=== PATIENT | female | born 1950 | race Caucasian/White ===

== ENCOUNTER → 2019-07-19 09:05 | Outpatient (CLI) | payer OTHER, SELFPAY ==
--- NOTE | 2019-07-19 | DI.MRI.S_ITS ---
PROCEDURE: MR HEAD/BRAIN WO/W CON INDICATIONS: Diplopia TECHNIQUE: Noncontrast axial T1 spin echo, axial T2 fast spin echo, sagittal and axial FLAIR, coronal T2 fast spin echo, axial gradient echo, axial diffusion and ADC through the brain. After the administration of contrast, axial and coronal T1 spin echo with fat saturation through the brain. COMPARISON: None. FINDINGS: Image quality: Diagnostic CSF spaces: Basal cisterns are patent. No extra-axial fluid collections. Ventricles are normal in size and shape. Brain: No midline shift. No intracranial bleeds or masses. No abnormal intracranial enhancement. There is cerebral volume loss for age. There is periventricular white matter chronic small vessel ischemic change. The brainstem appears normal. Diffusion-weighted images demonstrate no acute ischemic insults. No chronic ischemic insults. Normal intravascular flow voids are present. Skull and face: Calvarial marrow is normal in signal. Orbits appear normal. Sinuses: Sinuses and mastoids appear clear. There is mild to moderate rightward nasal septal deviation incidentally noted. IMPRESSION: No imaging explanation is found for this patient's presenting symptoms. No orbital abnormality is seen to the limits of this study. No masses or abnormal enhancement can be seen. No findings of acute or subacute infarction can be seen. Dictated by: Xander Steel M.D. on 07/19/2019 at 10:15 Approved by: Xander Steel M.D. on 07/19/2019 at 10:16
== END ==
PROVIDERS: PCP Family Medicine; Visit Provider Family Medicine
DX: H53.2 Diplopia (principal); H57.13 Ocular pain, bilateral; J34.2 Deviated nasal septum
CPT/HCPCS: 70553

== ENCOUNTER → 2021-02-17 13:00 | Outpatient (CLI) | payer MEDICARE, SELFPAY ==
[2021-02-17 20:33] LABS: COVID19 - ORCAS (NP or Nasal) Negative (Negative)
== END ==
PROVIDERS: PCP Family Medicine; Visit Provider Family Medicine
DX: Z20.822 Contact with and (suspected) exposure to COVID-19 (principal)
CPT/HCPCS: C9803; U0003

== ENCOUNTER → 2022-06-23 09:37 | Outpatient (CLI) | payer MEDICARE, SELFPAY ==
[2022-06-23 20:05] LABS: Add Manual Diff / Slide Review NO; Basophils Absolute Auto 100 /uL (0-100); Basophils Percent Auto 0.8 % (0-2); Eosinophils Absolute Auto 0 /uL (0-450); Eosinophils Percent Auto 0.1 % (2-4); Hematocrit 41.3 % (36-46); Hemoglobin 13.9 g/dL (12.0-16.0); Lymphocytes Absolute Auto 1500 /uL (1100-4500); Mean Corpuscular HGB Conc 33.7 % (30-36); Mean Corpuscular Hemoglobin 30.3 PG (26-34); Monocytes Absolute Auto 500 /uL (0-900); Monocytes Percent Auto 7.6 % (3-14); Neutrophils Absolute Auto 4900 /uL (1500-7000); Neutrophils Percent Auto 70.5 % (50-75); Platelet Count 157 X10^3/uL (150-400); Red Blood Cell Count 4.58 X10^6/uL (4.0-5.2); Red Cell Distribution Width 12.9 % (11.6-14.8)
[2022-06-23 20:10] LABS: BUN Creatinine Ratio 28.4 (6-22); Blood Urea Nitrogen 19 mg/dL (7-17); Calcium 9.3 mg/dL (8.4-10.2); Carbon Dioxide 29 mmol/L (22-32); Chloride 103 mmol/L (98-107); Cholesterol 220 mg/dL (140-199); Estimated Glomerular Filt Rate > 60 mL/min (>60); Glucose 99 mg/dL (80-110); HDL Cholesterol 61 mg/dL (40-60); HEMOLYSIS < 15 (0-50); LDL Cholesterol Calculated 132 mg/dL (<100); Potassium 4.1 mmol/L (3.4-5.1); Sodium 139 mmol/L (137-145); Triglycerides 135 mg/dL (35-150)
== END ==
PROVIDERS: PCP Physician Assistant; Visit Provider Family Medicine
DX: E66.3 Overweight (principal); I10 Essential (primary) hypertension; I65.23 Occlusion and stenosis of bilateral carotid arteries; Z13.220 Encounter for screening for lipoid disorders
CPT/HCPCS: 80048; 80061; 85025

== ENCOUNTER → 2022-06-30 12:16 | Outpatient (CLI) | payer MEDICARE, SELFPAY ==
--- NOTE | 2022-06-30 12:19 | DI.US.S_ITS ---
PROCEDURE: US CAROTID DOPPLER BI INDICATIONS: BRUIT TECHNIQUE: Color and pulse Doppler interrogation was performed of both carotid systems, with image documentation and velocity measurements. COMPARISON: [facility], , CAROTID ARTERY DOPPLER BILAT, 10/21/2010, 10:46. FINDINGS: Stenosis calculations are based on SRU (Society of Radiologists in Ultrasound) criteria. Right side: Brachial blood pressure: 154/81 mm Hg. Common carotid artery peak systolic velocity: 81 cm/sec. Internal carotid artery peak systolic velocity: 85 cm/sec. Internal carotid artery end diastolic velocity: 22 cm/sec. External carotid artery peak systolic velocity: 95 cm/sec. ICA/CCA peak systolic ratio: 1.1 . Rivera scale imaging description: Mild calcified atherosclerotic plaque Percent internal carotid artery stenosis: Less than 50%. Vertebral artery: Flow direction is antegrade. Left side: Brachial blood pressure: 138/72 mm Hg. Common carotid artery peak systolic velocity: 110 cm/sec. Internal carotid artery peak systolic velocity: 93 cm/sec. Internal carotid artery end diastolic velocity: 27 cm/sec. External carotid artery peak systolic velocity: 114 cm/sec. ICA/CCA peak systolic ratio: 0.8 . Rivera scale imaging description: Normal Percent internal carotid artery stenosis: Less than 50%. Vertebral artery: Flow direction is antegrade. IMPRESSION: Less than 50% stenosis of the bilateral internal carotid arteries. Dictated by: Jonathan Morel M.D. on 07/01/2022 at 8:41 Approved by: Jonathan Morel M.D. on 07/01/2022 at 8:43
== END ==
PROVIDERS: PCP Family Medicine; Referring Provider Family Medicine; Visit Provider Family Medicine
DX: I65.23 Occlusion and stenosis of bilateral carotid arteries (principal)
CPT/HCPCS: 93880

== ENCOUNTER → 2022-11-26 10:30 | Outpatient (CLI) | payer MEDICARE, SELFPAY ==
[2022-11-26 20:29] LABS: Cholesterol 208 mg/dL (140-199); HDL Cholesterol 66 mg/dL (40-60); LDL Cholesterol Calculated 118 mg/dL (<100); Triglycerides 120 mg/dL (35-150)
== END ==
PROVIDERS: PCP Family Medicine; Visit Provider Family Medicine
DX: E78.2 Mixed hyperlipidemia (principal); I65.23 Occlusion and stenosis of bilateral carotid arteries
CPT/HCPCS: 80061

== ENCOUNTER → 2023-03-02 10:22 | Outpatient (CLI) | payer MEDICARE, SELFPAY ==
[2023-03-02 20:05] LABS: Cholesterol 174 mg/dL (140-199); HDL Cholesterol 62 mg/dL (40-60); LDL Cholesterol Calculated 87 mg/dL (<100); Triglycerides 124 mg/dL (35-150)
== END ==
PROVIDERS: PCP Family Medicine; Visit Provider Family Medicine
DX: E78.2 Mixed hyperlipidemia (principal)
CPT/HCPCS: 80061

== ENCOUNTER → 2024-01-17 11:43 | Outpatient (CLI) | payer MEDICARE, SELFPAY ==
--- NOTE | 2024-01-17 11:45 | DI.MRI.S_ITS ---
PROCEDURE: MR BRAIN (IAC) WWO CON INDICATIONS: Sudden onset unilateral tinnitus TECHNIQUE: Noncontrast sagittal T1 spin echo, axial FLAIR, axial gradient echo, axial diffusion and ADC through the brain. Axial thin-slice 3D CISS, coronal TruFISP, axial T1 spin echo with fat saturation through the internal auditory canals. After the administration of contrast, thin slice axial and coronal T1 spin echo with fat saturation through the internal auditory canals, and axial and coronal and sagittal T1 spin echo with fat saturation through the brain. COMPARISON: Merged With [facility], MR, MR HEAD/BRAIN WO/W CON, 07/19/2019, 9:15. FINDINGS: Image quality: Excellent. Cerebellopontine angles: No cerebellopontine angle masses. Inner ear structures appear normally formed. No suspicious enhancement in the internal auditory canal or along the course of the 7th cranial nerve. CSF spaces: Ventricles are normal in size and shape. No extra-axial fluid collections. Basal cisterns are patent. Brain: No intracranial bleeds or mass effects. Rivera-white matter interface is intact. No abnormal intracranial enhancement. Diffusion weighted images demonstrate no acute ischemic insults. Brainstem appears normal. Normal intravascular flow voids are present. Note is made of age-appropriate brain parenchymal volume loss and chronic small vessel ischemic changes. Skull and face: Calvarial marrow signal is normal. Orbits appear normal. Sinuses: Sinuses and mastoids are clear. IMPRESSION: No imaging explanation is found for this patient's presenting symptoms. No masses or abnormal enhancement are seen within the cerebellopontine angle cisterns or within the internal auditory canals. No findings of acute or subacute infarction can be seen. No prior territorial infarct can be seen. Dictated by: Xander Steel M.D. on 01/17/2024 at 12:05 Approved by: Xander Steel M.D. on 01/17/2024 at 12:06
== END ==
PROVIDERS: PCP Family Medicine; Referring Provider Family Medicine; Visit Provider Family Medicine
DX: I65.23 Occlusion and stenosis of bilateral carotid arteries (principal); H93.19 Tinnitus, unspecified ear
CPT/HCPCS: 70553; A9579

== ENCOUNTER → 2024-03-09 09:34 | Outpatient (CLI) | payer MEDICARE, SELFPAY ==
[2024-03-09 19:15] LABS: Add Manual Diff / Slide Review NO; Basophils Absolute Auto 0 /uL (0-100); Basophils Percent Auto 0.4 % (0-2); Eosinophils Absolute Auto 200 /uL (0-450); Eosinophils Percent Auto 2.6 % (2-4); Hematocrit 39.5 % (36-46); Hemoglobin 13.4 g/dL (12.0-16.0); Lymphocytes Absolute Auto 1500 /uL (1100-4500); Lymphocytes Percent Auto 22.2 % (25-40); Mean Corpuscular HGB Conc 33.9 % (30-36); Mean Corpuscular Hemoglobin 30.8 PG (26-34); Mean Corpuscular Volume 90.6 fL (80-100); Monocytes Absolute Auto 700 /uL (0-900); Monocytes Percent Auto 9.6 % (3-14); Neutrophils Absolute Auto 4400 /uL (1500-7000); Neutrophils Percent Auto 65.2 % (50-75); Platelet Count 155 X10^3/uL (150-400); Red Blood Cell Count 4.36 X10^6/uL (4.0-5.2); Red Cell Distribution Width 13.4 % (11.6-14.8); White Blood Cell Count 6.8 X10^3/uL (4.5-11.0)
[2024-03-09 19:17] LABS: BUN Creatinine Ratio 24.2 (6-22); Blood Urea Nitrogen 16 mg/dL (7-17); Calcium 9.2 mg/dL (8.4-10.2); Carbon Dioxide 29 mmol/L (22-32); Chloride 107 mmol/L (98-107); Cholesterol 174 mg/dL (140-199); Estimated Glomerular Filt Rate > 60 mL/min (>60); Glucose 93 mg/dL (80-110); HDL Cholesterol 74 mg/dL (40-60); HEMOLYSIS 15 (0-50); LDL Cholesterol Calculated 72 mg/dL (<100); Potassium 4.1 mmol/L (3.4-5.1); Sodium 140 mmol/L (137-145); Triglycerides 139 mg/dL (35-150)
[2024-03-09 19:47] LABS: TSH w/ Reflex to FT4 9.32 uIU/mL (0.47-4.68)
== END ==
PROVIDERS: PCP Family Medicine; Visit Provider Family Medicine
DX: R26.89 Other abnormalities of gait and mobility (principal); E78.2 Mixed hyperlipidemia; I10 Essential (primary) hypertension; I65.23 Occlusion and stenosis of bilateral carotid arteries; H53.2 Diplopia
CPT/HCPCS: 80048; 80061; 84439; 84443; 85025

== ENCOUNTER → 2024-04-10 15:52 | Outpatient (CLI) | payer MEDICARE, SELFPAY ==
--- NOTE | 2024-04-10 15:53 | DI.RAD.S_ITS ---
PROCEDURE: XR KNEE RT 3V INDICATIONS: Right knee pain TECHNIQUE: 3 views of the knee were acquired. COMPARISON: None. FINDINGS: Bones: Ossific density adjacent to the medial femoral condyle most consistent with a Art-Stieda lesion. No acute fracture. No suspicious bony lesions. Soft tissues: Small joint effusion. No suspicious soft tissue calcifications. IMPRESSION: Art-Stieda lesion. No acute fracture. Small right knee joint effusion. If symptoms persist with conservative management, consider cross-sectional imaging such as CT or MRI. Approved by: Rosita Mejia M.D.,Ph.D. on 04/10/2024 at 21:44
== END ==
PROVIDERS: PCP Family Medicine; Referring Provider Family Medicine; Visit Provider Family Medicine
DX: M76.41 Tibial collateral bursitis [Pellegrini-Stieda], right leg (principal); M25.561 Pain in right knee; M25.461 Effusion, right knee
CPT/HCPCS: 73562

== ENCOUNTER → 2024-08-23 10:01 | Outpatient (CLI) | payer MEDICARE, SELFPAY ==
--- NOTE | 2024-08-23 10:02 | DI.RAD.S_ITS ---
PROCEDURE: XR DEXA AXIAL SKELETON INDICATIONS: Post menopause, screening for osteoporosis COMPARISON: [facility], [place], DEXA AXIAL SKELETON, 10/21/2016, 13:45. FINDINGS: Lumbar Spine: Bone mineral density 0.860 g/cm2, T score -1.7. There is interval 3% decrease in total lumbar spine bone mineral density. Left Hip: Bone mineral density 0.785 g/cm2, T score -1.3. There is interval 0.9% decrease in left total hip bone mineral density. Left Femoral Neck: Bone mineral density 0.623 g/cm2, T score -2.0. There is interval 2.7% decrease in left femoral neck bone mineral density. Right Hip: Bone mineral density 0.692 g/cm2, T score -2.0. There is interval 5.3% decrease in total right hip bone mineral density. Right Femoral Neck: Bone mineral density 0.604 g/cm2, T score -2.2. Fracture Risk Calculation (when applicable): 10-year fracture risk of a major osteoporotic fracture 14 percent and of a hip fracture 3.6 percent. (T score greater or equal to -1.0 to: NORMAL) (T score from -1.1 to -2.4: OSTEOPENIA) (T score less than or equal to -2.5: OSTEOPOROSIS) IMPRESSION: Osteopenia. Follow-up guidelines as follows: Osteoporosis: Consider a repeat DEXA and Vertebral Fracture Assessment (VFA) exam in 2 years or sooner if medically necessary, to reassess this patient's status. Osteopenia: Consider a repeat DEXA in 2-3 years to reassess this patient's status, or if there is a new clinical indication. Normal: Consider a repeat DEXA in 5 years or sooner, or if there is a new clinical indication. All treatment decisions require clinical judgment and consideration of individual patient factors, including patient preferences, comorbidities, previous drug use, risk factors not captured in the FRAX model (e.g., frailty, falls, vitamin D deficiency, increased bone turnover, interval significant decline in bone density ) and possible under- or over-estimation of fracture risk by FRAX. In addition, the NOF Guide recommends that FDA-approved medical therapies be considered in postmenopausal women and men age >= 50 years with a: * Hip or vertebral (clinical or morphometric) fracture * T-score of <=-2.5 at the spine or hip * Ten-year fracture probability by FRAX of >= 3% for hip fracture or >=20% for major osteoporotic fracture. People with diagnosed cases of osteoporosis or at high risk for fracture should have regular bone mineral density tests. For patients eligible for Medicare, routine testing is allowed once every 2 years. The testing frequency can be increased to one year for patients who have rapidly progressing disease, those who are receiving or discontinuing medical therapy to restore bone mass, or have additional risk factors. Dictated by: Anthony Barahona M.D. on 08/23/2024 at 12:44 Approved by: Anthony Barahona M.D. on 08/23/2024 at 12:45
--- NOTE | 2024-08-23 10:02 | DI.MG.S_ITS ---
BILATERAL DIGITAL SCREENING MAMMOGRAM 3D/2D WITH CAD: 08/23/2024 CLINICAL: Routine screening. Comparison is made to exams dated: 10/21/2016 mammogram, 02/22/2014 mammogram, 10/21/2010 mammogram, 06/10/2009 mammogram, and 02/02/2008 mammogram - [facility]. There are scattered areas of fibroglandular density (category b / 25%-50% glandular tissue). Current study was also evaluated with a Computer Aided Detection (CAD) system. No significant masses, calcifications, or other findings are seen in either breast. There has been no significant interval change. IMPRESSION: NEGATIVE There is no mammographic evidence of malignancy. A 1 year screening mammogram is recommended. Based on the Tyrer Cuzick model (a risk assessment model) the patient's lifetime risk is 4.1% and her 10 year risk is 4.1%. According to the ACR, ACS, and NCCN guidelines, an annual breast MRI exam along with mammogram is recommended if the patient's lifetime risk is 20% or greater. This exam was interpreted at Station ID: [id number]. NOTE: For mammograms, a report in lay terms will be sent to the patient. Approximately 15% of breast malignancies will not be visualized mammographically. In the management of a palpable breast mass, a negative mammogram must not discourage biopsy of a clinically suspicious lesion. Electronically Signed By: Rosita Mejia M.D., Ph.D. [email or web address]:08/23/2024 17:28:36 letter sent: Normal Exam ACR BI-RADS Category 1: Negative
== END ==
PROVIDERS: Family Provider Family Medicine; PCP Family Medicine; Referring Provider Family Medicine; Visit Provider Family Medicine
DX: Z12.31 Encounter for screening mammogram for malignant neoplasm of breast (principal); M85.89 Other specified disorders of bone density and structure, multiple sites; Z13.820 Encounter for screening for osteoporosis; Z78.0 Asymptomatic menopausal state
CPT/HCPCS: 77063; 77067; 77080

== ENCOUNTER 2024-09-25 07:30 | Outpatient (RCR) | payer MEDICARE, SELFPAY ==
--- NOTE | 2024-08-08 13:20 | PT.OIE ---
Current Diagnoses Pain in right knee (08/08/24) Past Medical History (Last Updated 06/15/22 @ 11:26 by Salbador Hurd MD) Acute pain of left wrist Encounter for hepatitis C screening test for low risk patient History of environmental allergies History of skin cancer History of squamous cell carcinoma Other intraarticular fracture of lower end of left radius, initial encounter for closed fracture (~09/16/17) Screening for cardiovascular condition Screening for colon cancer Screening for diabetes mellitus Screening for lipoid disorders Visit Care Team Role Provider Type Marge Guevara MD Attending Provider Physician Family Provider Primary Care Provider Referring Provider Specialty: Family Practice HPLC CHEMIST Address: [address] [place] [address], [id number] Email: [email or web address] Physical Therapy Initial Evaluation PT-OP-A Visit Information Start: 08/06/24 08:31 Freq: Status: Active Protocol: Document 08/08/24 07:24 MB (Rec: 08/08/24 07:52 [id number]) Out-Patient Physical Therapy Visit Information Visit Information Visit Type Initial Evaluation Visit Note [facility], evmo only Visit Start Time 07:24 Visit Stop Time 08:04 Visit Number 1 Number of ENGROSSER Visits 0 Evaluation Information Evaluation Date 08/08/24 PT-OP-B Current Condition Start: 08/06/24 08:31 Freq: Status: Active Protocol: Document 08/08/24 07:24 MB (Rec: 08/08/24 07:52 [id number]) Current Condition History of Current Condition Onset Date A couple of years Current Complaints Pain and buckling right knee History of Current Condition Pt reports ski injury 30 years ago where she shattered her distal RLE and she had ORIF and then hardware removal later. Pt was living on [place] for 25 years and has been putting off some health care self-care. She moved to [place] in February . She did some alternative treatments. Walking, hiking, stair climbing are all challenging. She swims everyday. Even shopping is troublesome. She does not have stairs at the house except one step to enter and she lives alone. Prior Treatments and Tests Right knee x-ray 04/10/24: IMPRESSION: Art-Stieda lesion. No acute fracture. Small right knee joint effusion. If symptoms persist with conservative management, consider cross-sectional imaging such as CT or MRI. Treatment Goals Patient/Caregiver Goals To walk without pain PT-OP-C Subjective Start: 08/06/24 08:31 Freq: Status: Active Protocol: Document 08/08/24 07:24 MB (Rec: 08/08/24 07:52 MB [id number]) OP-PT Subjective Patient Comments Patient Comments See history of current condition Patient Questionnaires Other Questionnaire Name and Score LEF score is inaccurate as she circles a myriad of answers per questions PT-OP-G Mobility & Gait Start: 08/06/24 08:31 Freq: Status: Active Protocol: Document 08/08/24 07:24 MB (Rec: 08/08/24 07:52 MB [id number]) OP Gait Assessment Comments Gait Comments Pt presents with antalgic gait , favoring right leg and she has decreased right knee flexion and increased Linda angle on the right with gait PT-OP-J Posture/Palpation/Skin Start: 08/06/24 08:31 Freq: Status: Active Protocol: Document 08/08/24 07:24 MB (Rec: 08/08/24 07:52 MB [id number]) Posture Evaluation Comments Posture Comments Standing posture with barefeet : decreased weight bearing right leg, increased knee valgus right knee, increased Linda angle on the right and WB medially on the right foot, forward shoulders and left shoulder is higher than the right, increased convexity right thoracic spine, mild left convexity lumbar spine, left iliac crest higher than the right. PT-OP-K Range of Motion Start: 08/06/24 08:31 Freq: Status: Active Protocol: Document 08/08/24 07:24 MB (Rec: 08/08/24 13:19 MB [id number]) Knee Goniometric Range of Motion Knee Left Knee ROM WFL No Patient Position Supine Comments 3-110 deg Right Knee ROM WFL No Patient Position Supine Comments 3-120 deg PT-OP-M Strength Start: 08/06/24 08:31 Freq: Status: Active Protocol: Document 08/08/24 07:24 MB (Rec: 08/08/24 13:19 MB [id number]) Hip Strength Hip Manual Muscle Testing Left Flexion (L2) 4+ Good+ Abduction 4+ Good+ Right Flexion (L2) 4 Good Abduction 4 Good Knee Strength Knee Manual Muscle Testing Left Flexion (S2) 4 Good Extension (L3) 4 Good Right Flexion (S2) 4+ Good+ Extension (L3) 4+ Good+ Ankle/Foot Strength Ankle and Foot Manual Muscle Testing Bilateral Dorsiflexion (L4) 5 Normal Toe Strength Toe Manual Muscle Testing Left Great Toe Extension 5 Normal Right Great Toe Extension 5 Normal PT-OP-T Assessment and Plan Start: 08/06/24 08:31 Freq: Status: Active Protocol: Document 08/08/24 07:24 MB (Rec: 08/08/24 13:19 MB [id number]) Physical Therapy Assessment Rehab Potential Rehabilitation Potential Fair Evaluation Complexity Number of Personal Factors/Comorbidities 3 or More Number of Body Systems Impaired 3 Clinical Presentation at Evaluation Evolving Impairments Impairments Activity Tolerance,Balance, Coordination,Functional Activities,Functional Mobility ,Gait,Pain,Posture,ROM,Soft Tissue Mobility,Strength Goals 3 Impairment Lack of HEP Emergency Room Doctor Goal (LTG) Pt will perform progressive HEP with I including pelvic realignment, flexibility, gentle strengthening and balance exercises to improve pain and function. LTG Duration 8 weeks 2 Impairment Trouble walking Emergency Room Doctor Goal (LTG) Pt will gait train at least 1500 feet in 6 minutes with or without AD to improve community ambulation. LTG Duration 8 weeks 1 Impairment B LE weakness Senior Care Goal (LTG) Pt will present with B hip flexion and abduction and knee flexion and extension to at least 4+/5 to improve functional strength. LTG Duration 8 weeks Assessment Summary Assessment Pt is a 74 y/o female presenting with spinal postural changes, increased body mass, increased right knee valgus and right Linda angle in standing, B LE weakness and s/p B LE fractures and surgeries. She presents with pain to palpation medial joint line over the MCL area, which is the area found to have Art-Stieda lesion per x -ray. Pt presents with arthritic-type changes both knees and decreased ROM. Given mechanical changes of right knee, she may benefit from MRI and orthopedic surgeon consult in the future. Pt will benefit from PT trial to improve alignment, posture, myofascial tension, flexibility and strength as she is able to tolerate. Pt swims often and so she is working on fitness and flexibility in the pool. Physical Therapy Plan Frequency and Duration Frequency of Treatment 2x/Week Duration of treatment (weeks) 8 Plan of Care Start Date 08/08/24 Plan of Care End Date 10/09/24 Therapeutic Interventions Therapeutic Interventions Balance Training,Canalithic Repositioning,Coordination Training,Gait Training,Home Exercise Program,Joint Mobilizations,Manual Therapy, Neuromuscular Re-education, Patient/Caregiver Education, Self-Care/Home Management,Soft Tissue Mobilization,Taping, Therapeutic Activities, Therapeutic Exercises Modalities Cold Pack/Ice Massage,Electric Stimulation,Hot Packs, Ultrasound Next Visit Focus/Plan Next Note Type Treatment Note Next Visit Plan Initiate manual interventions including TrP treatment, hamstring and Regan stretches and possibly pelvic realignment exercises
--- NOTE | 2024-08-08 13:20 | PT.OPPOC ---
Physical, Occupational & Speech Therapy At [facility] Current Diagnoses Pain in right knee (08/08/24) Visit Care Team Role Provider Type Marge Guevara MD Attending Provider Physician Family Provider Primary Care Provider Referring Provider Specialty: Family Practice CHEMICAL DEPENDENCY PROFESSIONAL Address: [facility] [place], [address] Email: [email or web address] Plan Of Care PT-OP-B Current Condition Start: 08/06/24 08:31 Freq: Status: Active Protocol: Document 08/08/24 07:24 MB (Rec: 08/08/24 07:52 MB [id number]) Current Condition History of Current Condition Onset Date A couple of years Current Complaints Pain and buckling right knee History of Current Condition Pt reports ski injury 30 years ago where she shattered her distal RLE and she had ORIF and then hardware removal later. Pt was living on [place] for 25 years and has been putting off some health care self-care. She moved to [place] in February . She did some alternative treatments. Walking, hiking, stair climbing are all challenging. She swims everyday. Even shopping is troublesome. She does not have stairs at the house except one step to enter and she lives alone. Prior Treatments and Tests Right knee x-ray 04/10/24: IMPRESSION: Art-Stieda lesion. No acute fracture. Small right knee joint effusion. If symptoms persist with conservative management, consider cross-sectional imaging such as CT or MRI. Treatment Goals Patient/Caregiver Goals To walk without pain PT-OP-T Assessment and Plan Start: 08/06/24 08:31 Freq: Status: Active Protocol: Document 08/08/24 07:24 MB (Rec: 08/08/24 13:19 MB [id number]) Physical Therapy Assessment Rehab Potential Rehabilitation Potential Fair Evaluation Complexity Number of Personal Factors/Comorbidities 3 or More Number of Body Systems Impaired 3 Clinical Presentation at Evaluation Evolving Impairments Impairments Activity Tolerance,Balance, Coordination,Functional Activities,Functional Mobility ,Gait,Pain,Posture,ROM,Soft Tissue Mobility,Strength Goals 3 Impairment Lack of HEP Custodial Goal (LTG) Pt will perform progressive HEP with I including pelvic realignment, flexibility, gentle strengthening and balance exercises to improve pain and function. LTG Duration 8 weeks 2 Impairment Trouble walking Business Operations Director Goal (LTG) Pt will gait train at least 1500 feet in 6 minutes with or without AD to improve community ambulation. LTG Duration 8 weeks 1 Impairment B LE weakness Custodial Goal (LTG) Pt will present with B hip flexion and abduction and knee flexion and extension to at least 4+/5 to improve functional strength. LTG Duration 8 weeks Assessment Summary Assessment Pt is a 74 y/o female presenting with spinal postural changes, increased body mass, increased right knee valgus and right Linda angle in standing, B LE weakness and s/p B LE fractures and surgeries. She presents with pain to palpation medial joint line over the MCL area, which is the area found to have Art-Stieda lesion per x -ray. Pt presents with arthritic-type changes both knees and decreased ROM. Given mechanical changes of right knee, she may benefit from MRI and orthopedic surgeon consult in the future. Pt will benefit from PT trial to improve alignment, posture, myofascial tension, flexibility and strength as she is able to tolerate. Pt swims often and so she is working on fitness and flexibility in the pool. Physical Therapy Plan Frequency and Duration Frequency of Treatment 2x/Week Duration of treatment (weeks) 8 Plan of Care Start Date 08/08/24 Plan of Care End Date 10/09/24 Therapeutic Interventions Therapeutic Interventions Balance Training,Canalithic Repositioning,Coordination Training,Gait Training,Home Exercise Program,Joint Mobilizations,Manual Therapy, Neuromuscular Re-education, Patient/Caregiver Education, Self-Care/Home Management,Soft Tissue Mobilization,Taping, Therapeutic Activities, Therapeutic Exercises Modalities Cold Pack/Ice Massage,Electric Stimulation,Hot Packs, Ultrasound Next Visit Focus/Plan Next Note Type Treatment Note Next Visit Plan Initiate manual interventions including TrP treatment, hamstring and Regan stretches and possibly pelvic realignment exercises Plan of Care Dates Plan of Care Start Date 08/08/24 Plan of Care End Date 10/09/24 Electronically Signed by: Michell Stinson PT 08/08/24 [id number] If you are in agreement with this Plan of Care, please return a signed and dated copy. I have reviewed this Plan of Care and certify that the skilled therapy services above are required to meet the patient?s needs. Physician Signature Date Printed Name and Credentials Clinical Instructor Signature Printed Name and Credentials
--- NOTE | 2024-08-16 08:12 | PT.OTN ---
Current Diagnoses Pain in right knee (08/16/24) Physical Therapy Treatment Note PT-OP-A Visit Information Start: 08/06/24 08:31 Freq: Status: Active Protocol: Document 08/16/24 07:32 MB (Rec: 08/16/24 08:12 MB [id number]) Out-Patient Physical Therapy Visit Information Visit Information Visit Type Treatment Note Visit Start Time 07:32 Visit Stop Time 08:10 Visit Number 2 Number of MANUFACTURING ENGINEERING DIRECTOR Visits 0 Evaluation Information Evaluation Date 08/08/24 PT-OP-B Current Condition Start: 08/06/24 08:31 Freq: Status: Active Protocol: Document 08/08/24 07:24 MB (Rec: 08/08/24 07:52 MB [id number]) Current Condition History of Current Condition Onset Date A couple of years Current Complaints Pain and buckling right knee History of Current Condition Pt reports ski injury 30 years ago where she shattered her distal RLE and she had ORIF and then hardware removal later. Pt was living on [place] for 25 years and has been putting off some health care self-care. She moved to [place] in February . She did some alternative treatments. Walking, hiking, stair climbing are all challenging. She swims everyday. Even shopping is troublesome. She does not have stairs at the house except one step to enter and she lives alone. Prior Treatments and Tests Right knee x-ray 04/10/24: IMPRESSION: Art-Stieda lesion. No acute fracture. Small right knee joint effusion. If symptoms persist with conservative management, consider cross-sectional imaging such as CT or MRI. Treatment Goals Patient/Caregiver Goals To walk without pain PT-OP-C Subjective Start: 08/06/24 08:31 Freq: Status: Active Protocol: Document 08/16/24 07:32 MB (Rec: 08/16/24 08:12 MB [id number]) OP-PT Subjective Patient Comments Patient Comments Pt states she is feeling better and she is working out in the pool. PT-OP-G Mobility & Gait Start: 08/06/24 08:31 Freq: Status: Active Protocol: Document 08/08/24 07:24 MB (Rec: 08/08/24 07:52 MB [id number]) OP Gait Assessment Comments Gait Comments Pt presents with antalgic gait , favoring right leg and she has decreased right knee flexion and increased Linda angle on the right with gait PT-OP-J Posture/Palpation/Skin Start: 08/06/24 08:31 Freq: Status: Active Protocol: Document 08/08/24 07:24 MB (Rec: 08/08/24 07:52 MB [id number]) Posture Evaluation Comments Posture Comments Standing posture with barefeet : decreased weight bearing right leg, increased knee valgus right knee, increased [place]lnda angle on the right and WB medially on the right foot, forward shoulders and left shoulder is higher than the right, increased convexity right thoracic spine, mild left convexity lumbar spine, left iliac crest higher than the right. PT-OP-K Range of Motion Start: 08/06/24 08:31 Freq: Status: Active Protocol: Document 08/08/24 07:24 MB (Rec: 08/08/24 13:19 MB [id number]) Knee Goniometric Range of Motion Knee Left Knee ROM WFL No Patient Position Supine Comments 3-110 deg Right Knee ROM WFL No Patient Position Supine Comments 3-120 deg PT-OP-M Strength Start: 08/06/24 08:31 Freq: Status: Active Protocol: Document 08/08/24 07:24 MB (Rec: 08/08/24 13:19 MB [id number]) Hip Strength Hip Manual Muscle Testing Left Flexion (L2) 4+ Good+ Abduction 4+ Good+ Right Flexion (L2) 4 Good Abduction 4 Good Knee Strength Knee Manual Muscle Testing Left Flexion (S2) 4 Good Extension (L3) 4 Good Right Flexion (S2) 4+ Good+ Extension (L3) 4+ Good+ Ankle/Foot Strength Ankle and Foot Manual Muscle Testing Bilateral Dorsiflexion (L4) 5 Normal Toe Strength Toe Manual Muscle Testing Left Great Toe Extension 5 Normal Right Great Toe Extension 5 Normal PT-OP-Q Treatments Start: 08/06/24 08:31 Freq: Status: Active Protocol: Document 08/16/24 07:32 MB (Rec: 08/16/24 08:12 MB [id number]) Therapeutic Exercises Supine Exercises Regan stretch Supine Exercise Name HEP and HO given Side bilateral Reps/Minutes 1 rep, 45 sec hold Comments [place] knee to chest Manual Therapy Treatment Consent Patient gave verbal consent for manual Yes treatment Other Other Manual Treatments Pt supine with head and legs supported: STM and positional release right vastus lateralis , TrP treatment rectus and STM , vastus lateralis as well, STM medial right hamstring, STM right quads and vastus lateralis PT-OP-T Assessment and Plan Start: 08/06/24 08:31 Freq: Status: Active Protocol: Document 08/16/24 07:32 MB (Rec: 08/16/24 08:12 MB [id number]) Physical Therapy Assessment Rehab Potential Rehabilitation Potential Fair Evaluation Complexity Number of Personal Factors/Comorbidities 3 or More Number of Body Systems Impaired 3 Clinical Presentation at Evaluation Evolving Impairments Impairments Activity Tolerance,Balance, Coordination,Functional Activities,Functional Mobility ,Gait,Pain,Posture,ROM,Soft Tissue Mobility,Strength Goals 3 Impairment Lack of HEP Jail Goal (LTG) Pt will perform progressive HEP with I including pelvic realignment, flexibility, gentle strengthening and balance exercises to improve pain and function. LTG Duration 8 weeks 2 Impairment Trouble walking Jail Goal (LTG) Pt will gait train at least 1500 feet in 6 minutes with or without AD to improve community ambulation. LTG Duration 8 weeks 1 Impairment B LE weakness Jail Goal (LTG) Pt will present with B hip flexion and abduction and knee flexion and extension to at least 4+/5 to improve functional strength. LTG Duration 8 weeks Assessment Summary Assessment Initiated manual work today and Regan stretch and pt tolerates well. Physical Therapy Plan Frequency and Duration Frequency of Treatment 2x/Week Duration of treatment (weeks) 8 Plan of Care Start Date 08/08/24 Plan of Care End Date 10/09/24 Therapeutic Interventions Therapeutic Interventions Balance Training,Canalithic Repositioning,Coordination Training,Gait Training,Home Exercise Program,Joint Mobilizations,Manual Therapy, Neuromuscular Re-education, Patient/Caregiver Education, Self-Care/Home Management,Soft Tissue Mobilization,Taping, Therapeutic Activities, Therapeutic Exercises Modalities Cold Pack/Ice Massage,Electric Stimulation,Hot Packs, Ultrasound Next Visit Focus/Plan Next Note Type Treatment Note Next Visit Plan Con't manual interventions including TrP treatment, hamstring stretch and pelvic realignment exercises. In future, consider hip rotator and adductor stretchs, progressive gentle core strengthening, balance and gentle LE strengthening, may teach KT for right knee support with gait
--- NOTE | 2024-08-21 08:12 | PT.OTN ---
Current Diagnoses Pain in right knee (08/21/24) Physical Therapy Treatment Note PT-OP-A Visit Information Start: 08/06/24 08:31 Freq: Status: Active Protocol: Document 08/21/24 07:30 MB (Rec: 08/21/24 08:12 MB [id number]) Out-Patient Physical Therapy Visit Information Visit Information Visit Type Treatment Note Visit Note 16 visits through 10/04/24 Visit Start Time 07:30 Visit Stop Time 08:10 Visit Number 3 Number of CRUSHER FEEDER Visits 0 Evaluation Information Evaluation Date 08/08/24 PT-OP-B Current Condition Start: 08/06/24 08:31 Freq: Status: Active Protocol: Document 08/08/24 07:24 MB (Rec: 08/08/24 07:52 MB [id number]) Current Condition History of Current Condition Onset Date A couple of years Current Complaints Pain and buckling right knee History of Current Condition Pt reports ski injury 30 years ago where she shattered her distal RLE and she had ORIF and then hardware removal later. Pt was living on [place] for 25 years and has been putting off some health care self-care. She moved to [place] in February . She did some alternative treatments. Walking, hiking, stair climbing are all challenging. She swims everyday. Even shopping is troublesome. She does not have stairs at the house except one step to enter and she lives alone. Prior Treatments and Tests Right knee x-ray 04/10/24: IMPRESSION: Art-Stieda lesion. No acute fracture. Small right knee joint effusion. If symptoms persist with conservative management, consider cross-sectional imaging such as CT or MRI. Treatment Goals Patient/Caregiver Goals To walk without pain PT-OP-C Subjective Start: 08/06/24 08:31 Freq: Status: Active Protocol: Document 08/21/24 07:30 MB (Rec: 08/21/24 08:12 MB [id number]) OP-PT Subjective Patient Comments Patient Comments Pt states she is getting in the pool 7 days a week when the pool is open. PT-OP-G Mobility & Gait Start: 08/06/24 08:31 Freq: Status: Active Protocol: Document 08/08/24 07:24 MB (Rec: 08/08/24 07:52 MB [id number]) OP Gait Assessment Comments Gait Comments Pt presents with antalgic gait , favoring right leg and she has decreased right knee flexion and increased Linda angle on the right with gait PT-OP-J Posture/Palpation/Skin Start: 08/06/24 08:31 Freq: Status: Active Protocol: Document 08/08/24 07:24 MB (Rec: 08/08/24 07:52 MB [id number]) Posture Evaluation Comments Posture Comments Standing posture with barefeet : decreased weight bearing right leg, increased knee valgus right knee, increased Linda angle on the right and WB medially on the right foot, forward shoulders and left shoulder is higher than the right, increased convexity right thoracic spine, mild left convexity lumbar spine, left iliac crest higher than the right. PT-OP-K Range of Motion Start: 08/06/24 08:31 Freq: Status: Active Protocol: Document 08/08/24 07:24 MB (Rec: 08/08/24 13:19 MB [id number]) Knee Goniometric Range of Motion Knee Left Knee ROM WFL No Patient Position Supine Comments 3-110 deg Right Knee ROM WFL No Patient Position Supine Comments 3-120 deg PT-OP-M Strength Start: 08/06/24 08:31 Freq: Status: Active Protocol: Document 08/08/24 07:24 MB (Rec: 08/08/24 13:19 MB [id number]) Hip Strength Hip Manual Muscle Testing Left Flexion (L2) 4+ Good+ Abduction 4+ Good+ Right Flexion (L2) 4 Good Abduction 4 Good Knee Strength Knee Manual Muscle Testing Left Flexion (S2) 4 Good Extension (L3) 4 Good Right Flexion (S2) 4+ Good+ Extension (L3) 4+ Good+ Ankle/Foot Strength Ankle and Foot Manual Muscle Testing Bilateral Dorsiflexion (L4) 5 Normal Toe Strength Toe Manual Muscle Testing Left Great Toe Extension 5 Normal Right Great Toe Extension 5 Normal PT-OP-Q Treatments Start: 08/06/24 08:31 Freq: Status: Active Protocol: Document 08/21/24 07:30 MB (Rec: 08/21/24 08:12 MB [id number]) Cardio Equipment Bicycle (Upright) Duration (Minutes) 2 Seat Position 7 Other 1-6 Therapeutic Exercises Supine Exercises Pelvic realignment exercises Supine Exercise Name HEP and HO given Side bilateral Equipment Used Blue ball Reps/Minutes 5 reps, 3 sec hold all exercises Comments Performed in order Adductor stretch Supine Exercise Name HEP and HO given Side bilateral Reps/Minutes 1 rep each side, one leg at a time, drop out Comments B knees bent Hamstring stretch Supine Exercise Name HEP and HO given Side bilateral Reps/Minutes 1 rep with 20-30 AP Regan stretch Supine Exercise Name Reviewed performance today Side bilateral Reps/Minutes 1 rep, 45 sec hold Comments [place] knee to chest Manual Therapy Treatment Consent Patient gave verbal consent for manual Yes treatment Other Other Manual Treatments Pt supine with head and legs supported: STM and positional release right vastus lateralis , TrP treatment as well; pt in sidelying: STM right TFL, glutes, vastus lateralis and PFs PT-OP-T Assessment and Plan Start: 08/06/24 08:31 Freq: Status: Active Protocol: Document 08/21/24 07:30 MB (Rec: 08/21/24 08:12 MB [id number]) Physical Therapy Assessment Rehab Potential Rehabilitation Potential Fair Evaluation Complexity Number of Personal Factors/Comorbidities 3 or More Number of Body Systems Impaired 3 Clinical Presentation at Evaluation Evolving Impairments Impairments Activity Tolerance,Balance, Coordination,Functional Activities,Functional Mobility ,Gait,Pain,Posture,ROM,Soft Tissue Mobility,Strength Goals 3 Impairment Lack of HEP Palletizer Goal (LTG) Pt will perform progressive HEP with I including pelvic realignment, flexibility, gentle strengthening and balance exercises to improve pain and function. LTG Duration 8 weeks 2 Impairment Trouble walking Correction Goal (LTG) Pt will gait train at least 1500 feet in 6 minutes with or without AD to improve community ambulation. LTG Duration 8 weeks 1 Impairment B LE weakness Correction Goal (LTG) Pt will present with B hip flexion and abduction and knee flexion and extension to at least 4+/5 to improve functional strength. LTG Duration 8 weeks Assessment Summary Assessment Pt could not tolerate upright bike today d/t increased right knee pain. Increased flexibility exercises today and pelvic realignment exercises. Physical Therapy Plan Frequency and Duration Frequency of Treatment 2x/Week Duration of treatment (weeks) 8 Plan of Care Start Date 08/08/24 Plan of Care End Date 10/09/24 Therapeutic Interventions Therapeutic Interventions Balance Training,Canalithic Repositioning,Coordination Training,Gait Training,Home Exercise Program,Joint Mobilizations,Manual Therapy, Neuromuscular Re-education, Patient/Caregiver Education, Self-Care/Home Management,Soft Tissue Mobilization,Taping, Therapeutic Activities, Therapeutic Exercises Modalities Cold Pack/Ice Massage,Electric Stimulation,Hot Packs, Ultrasound Next Visit Focus/Plan Next Note Type Treatment Note Next Visit Plan Con't manual interventions including TrP treatment, consider standing calf stretches and hip rotator stretch, progressive gentle core strengthening, balance and gentle LE strengthening, may teach KT for right knee support with gait
--- NOTE | 2024-08-23 08:12 | PT.OTN ---
Current Diagnoses Pain in right knee (08/23/24) Physical Therapy Treatment Note PT-OP-A Visit Information Start: 08/06/24 08:31 Freq: Status: Active Protocol: Document 08/23/24 07:30 MB (Rec: 08/23/24 08:12 MB [id number]) Out-Patient Physical Therapy Visit Information Visit Information Visit Type Treatment Note Visit Note 16 visits through 10/04/24 Visit Start Time 07:30 Visit Stop Time 08:10 Visit Number 4 Number of ORIENTAL MEDICINE PRACTITIONER Visits 0 Evaluation Information Evaluation Date 08/08/24 PT-OP-B Current Condition Start: 08/06/24 08:31 Freq: Status: Active Protocol: Document 08/08/24 07:24 MB (Rec: 08/08/24 07:52 MB [id number]) Current Condition History of Current Condition Onset Date A couple of years Current Complaints Pain and buckling right knee History of Current Condition Pt reports ski injury 30 years ago where she shattered her distal RLE and she had ORIF and then hardware removal later. Pt was living on [place] for 25 years and has been putting off some health care self-care. She moved to [place] in February . She did some alternative treatments. Walking, hiking, stair climbing are all challenging. She swims everyday. Even shopping is troublesome. She does not have stairs at the house except one step to enter and she lives alone. Prior Treatments and Tests Right knee x-ray 04/10/24: IMPRESSION: Art-Stieda lesion. No acute fracture. Small right knee joint effusion. If symptoms persist with conservative management, consider cross-sectional imaging such as CT or MRI. Treatment Goals Patient/Caregiver Goals To walk without pain PT-OP-C Subjective Start: 08/06/24 08:31 Freq: Status: Active Protocol: Document 08/23/24 07:30 MB (Rec: 08/23/24 08:12 MB [id number]) OP-PT Subjective Patient Comments Patient Comments Pt is going swimming after PT. PT-OP-G Mobility & Gait Start: 08/06/24 08:31 Freq: Status: Active Protocol: Document 08/08/24 07:24 MB (Rec: 08/08/24 07:52 MB [id number]) OP Gait Assessment Comments Gait Comments Pt presents with antalgic gait , favoring right leg and she has decreased right knee flexion and increased Linda angle on the right with gait PT-OP-J Posture/Palpation/Skin Start: 08/06/24 08:31 Freq: Status: Active Protocol: Document 08/08/24 07:24 MB (Rec: 08/08/24 07:52 MB [id number]) Posture Evaluation Comments Posture Comments Standing posture with barefeet : decreased weight bearing right leg, increased knee valgus right knee, increased Linda angle on the right and WB medially on the right foot, forward shoulders and left shoulder is higher than the right, increased convexity right thoracic spine, mild left convexity lumbar spine, left iliac crest higher than the right. PT-OP-K Range of Motion Start: 08/06/24 08:31 Freq: Status: Active Protocol: Document 08/08/24 07:24 MB (Rec: 08/08/24 13:19 MB [id number]) Knee Goniometric Range of Motion Knee Left Knee ROM WFL No Patient Position Supine Comments 3-110 deg Right Knee ROM WFL No Patient Position Supine Comments 3-120 deg PT-OP-M Strength Start: 08/06/24 08:31 Freq: Status: Active Protocol: Document 08/08/24 07:24 MB (Rec: 08/08/24 13:19 MB [id number]) Hip Strength Hip Manual Muscle Testing Left Flexion (L2) 4+ Good+ Abduction 4+ Good+ Right Flexion (L2) 4 Good Abduction 4 Good Knee Strength Knee Manual Muscle Testing Left Flexion (S2) 4 Good Extension (L3) 4 Good Right Flexion (S2) 4+ Good+ Extension (L3) 4+ Good+ Ankle/Foot Strength Ankle and Foot Manual Muscle Testing Bilateral Dorsiflexion (L4) 5 Normal Toe Strength Toe Manual Muscle Testing Left Great Toe Extension 5 Normal Right Great Toe Extension 5 Normal PT-OP-Q Treatments Start: 08/06/24 08:31 Freq: Status: Active Protocol: Document 08/23/24 07:30 MB (Rec: 08/23/24 08:12 MB [id number]) Therapeutic Exercises Supine Exercises Abdominal drawing in Supine Exercise Name HEP and HO Comments Performed today and will be start of core progression Hip rotator stretch Supine Exercise Name HEP and HO Side bilateral Reps/Minutes Several reps each leg Comments [place] foot down and up Standing Exercises Calf stretch Standing Exercise Name HEP and HO Side bilateral Reps/Minutes 1 rep each gastroc and soleus each leg Comments 30 sec hold Manual Therapy Treatment Consent Patient gave verbal consent for manual Yes treatment Other Other Manual Treatments Pt supine with head and legs supported: STM right hamstrings, quads, TrP right distal vastus lateralis and rectus femoris, STM right TFL PT-OP-T Assessment and Plan Start: 08/06/24 08:31 Freq: Status: Active Protocol: Document 08/23/24 07:30 MB (Rec: 08/23/24 08:12 MB [id number]) Physical Therapy Assessment Rehab Potential Rehabilitation Potential Fair Evaluation Complexity Number of Personal Factors/Comorbidities 3 or More Number of Body Systems Impaired 3 Clinical Presentation at Evaluation Evolving Impairments Impairments Activity Tolerance,Balance, Coordination,Functional Activities,Functional Mobility ,Gait,Pain,Posture,ROM,Soft Tissue Mobility,Strength Goals 3 Impairment Lack of HEP Snf Goal (LTG) Pt will perform progressive HEP with I including pelvic realignment, flexibility, gentle strengthening and balance exercises to improve pain and function. LTG Duration 8 weeks 2 Impairment Trouble walking Snf Goal (LTG) Pt will gait train at least 1500 feet in 6 minutes with or without AD to improve community ambulation. LTG Duration 8 weeks 1 Impairment B LE weakness Stay Cutter Goal (LTG) Pt will present with B hip flexion and abduction and knee flexion and extension to at least 4+/5 to improve functional strength. LTG Duration 8 weeks Assessment Summary Assessment Completed flexibility exercise instruction today and started abdominal drawing in awareness. Pt con't with limp gait and may need to work on gait pattern in future treatments. Physical Therapy Plan Frequency and Duration Frequency of Treatment 2x/Week Duration of treatment (weeks) 8 Plan of Care Start Date 08/08/24 Plan of Care End Date 10/09/24 Therapeutic Interventions Therapeutic Interventions Balance Training,Canalithic Repositioning,Coordination Training,Gait Training,Home Exercise Program,Joint Mobilizations,Manual Therapy, Neuromuscular Re-education, Patient/Caregiver Education, Self-Care/Home Management,Soft Tissue Mobilization,Taping, Therapeutic Activities, Therapeutic Exercises Modalities Cold Pack/Ice Massage,Electric Stimulation,Hot Packs, Ultrasound Next Visit Focus/Plan Next Note Type Treatment Note Next Visit Plan Consider working on walking pattern with PT in front or behind and pt and PT holding onto walking sticks to promote arm swing and step-through Con't manual interventions including TrP treatment, progressive gentle core strengthening, balance and gentle LE strengthening, may teach KT for right knee support with gait
--- NOTE | 2024-08-29 08:16 | PT.OTN ---
Current Diagnoses Pain in right knee (08/29/24) Physical Therapy Treatment Note PT-OP-A Visit Information Start: 08/06/24 08:31 Freq: Status: Active Protocol: Document 08/29/24 07:30 SP (Rec: 08/29/24 08:25 SP [id number]) Out-Patient Physical Therapy Visit Information Visit Information Visit Type Treatment Note Visit Note 16 visits through 10/04/24 Visit Start Time 07:30 Visit Stop Time 08:16 Visit Number 5 Number of BODILY INJURY ADJUSTER Visits 1 Evaluation Information Evaluation Date 08/08/24 PT-OP-B Current Condition Start: 08/06/24 08:31 Freq: Status: Active Protocol: Document 08/08/24 07:24 MB (Rec: 08/08/24 07:52 MB [id number]) Current Condition History of Current Condition Onset Date A couple of years Current Complaints Pain and buckling right knee History of Current Condition Pt reports ski injury 30 years ago where she shattered her distal RLE and she had ORIF and then hardware removal later. Pt was living on [place] for 25 years and has been putting off some health care self-care. She moved to [place] in February . She did some alternative treatments. Walking, hiking, stair climbing are all challenging. She swims everyday. Even shopping is troublesome. She does not have stairs at the house except one step to enter and she lives alone. Prior Treatments and Tests Right knee x-ray 04/10/24: IMPRESSION: Art-Stieda lesion. No acute fracture. Small right knee joint effusion. If symptoms persist with conservative management, consider cross-sectional imaging such as CT or MRI. Treatment Goals Patient/Caregiver Goals To walk without pain PT-OP-C Subjective Start: 08/06/24 08:31 Freq: Status: Active Protocol: Document 08/29/24 07:30 SP (Rec: 08/29/24 08:25 SP [id number]) OP-PT Subjective Patient Comments Patient Comments Pt reports only did stretches x2 since last tx. PT-OP-G Mobility & Gait Start: 08/06/24 08:31 Freq: Status: Active Protocol: Document 08/08/24 07:24 MB (Rec: 08/08/24 07:52 MB [id number]) OP Gait Assessment Comments Gait Comments Pt presents with antalgic gait , favoring right leg and she has decreased right knee flexion and increased Linda angle on the right with gait PT-OP-J Posture/Palpation/Skin Start: 08/06/24 08:31 Freq: Status: Active Protocol: Document 08/08/24 07:24 MB (Rec: 08/08/24 07:52 MB [id number]) Posture Evaluation Comments Posture Comments Standing posture with barefeet : decreased weight bearing right leg, increased knee valgus right knee, increased Linda angle on the right and WB medially on the right foot, forward shoulders and left shoulder is higher than the right, increased convexity right thoracic spine, mild left convexity lumbar spine, left iliac crest higher than the right. PT-OP-K Range of Motion Start: 08/06/24 08:31 Freq: Status: Active Protocol: Document 08/08/24 07:24 MB (Rec: 08/08/24 13:19 MB [id number]) Knee Goniometric Range of Motion Knee Left Knee ROM WFL No Patient Position Supine Comments 3-110 deg Right Knee ROM WFL No Patient Position Supine Comments 3-120 deg PT-OP-M Strength Start: 08/06/24 08:31 Freq: Status: Active Protocol: Document 08/08/24 07:24 MB (Rec: 08/08/24 13:19 MB [id number]) Hip Strength Hip Manual Muscle Testing Left Flexion (L2) 4+ Good+ Abduction 4+ Good+ Right Flexion (L2) 4 Good Abduction 4 Good Knee Strength Knee Manual Muscle Testing Left Flexion (S2) 4 Good Extension (L3) 4 Good Right Flexion (S2) 4+ Good+ Extension (L3) 4+ Good+ Ankle/Foot Strength Ankle and Foot Manual Muscle Testing Bilateral Dorsiflexion (L4) 5 Normal Toe Strength Toe Manual Muscle Testing Left Great Toe Extension 5 Normal Right Great Toe Extension 5 Normal PT-OP-Q Treatments Start: 08/06/24 08:31 Freq: Status: Active Protocol: Document 08/29/24 07:30 SP (Rec: 08/29/24 08:25 SP [id number]) Therapeutic Exercises Supine Exercises Abdominal drawing in Supine Exercise Name HEP and HO Equipment Used TA: LTR, HS, sequencial march, SKFO, segmental bridge Reps/Minutes 10 reps each Comments added core progression Hip rotator stretch Supine Exercise Name HEP and HO Side bilateral Resistance foot on table, use /c or /s towel knee opp shld Reps/Minutes Several reps each leg Comments report pnfree, good hip stretch foot down. Adductor stretch Supine Exercise Name HEP and HO given Side bilateral Reps/Minutes 1 rep each side, one leg at a time, drop out Comments B knees bent Hamstring stretch Supine Exercise Name hold due to knee pain 08/29/24 Side bilateral Reps/Minutes 1 rep with 20-30 AP Gait Training Gait Activity no AD Distance/Duration 20 ft x3 laps Treatment Focus normalizing gait Comments eduction front mirror upright posture, trunk midline with TA and R hip & knee flexion to allow R foot clearance and decrease limp gait. Manual Therapy Treatment Consent Patient gave verbal consent for manual Yes treatment Other Other Manual Treatments Pt supine with head and legs supported: STM right hamstrings, quads, TFL. Jt mobs: tibfemoral AP/PA knee flexed, tibfib AP/PA knee flexed, Patellofemoral med/lat /sup/inferior- improved significant pain reduction perform heel slide. PT-OP-T Assessment and Plan Start: 08/06/24 08:31 Freq: Status: Active Protocol: Document 08/29/24 07:30 SP (Rec: 08/29/24 08:25 SP [id number]) Physical Therapy Assessment Goals 3 Impairment Lack of HEP Metal Tube Cutter Goal (LTG) Pt will perform progressive HEP with I including pelvic realignment, flexibility, gentle strengthening and balance exercises to improve pain and function. LTG Duration 8 weeks 2 Impairment Trouble walking Metal Tube Cutter Goal (LTG) Pt will gait train at least 1500 feet in 6 minutes with or without AD to improve community ambulation. LTG Duration 8 weeks 1 Impairment B LE weakness Metal Tube Cutter Goal (LTG) Pt will present with B hip flexion and abduction and knee flexion and extension to at least 4+/5 to improve functional strength. LTG Duration 8 weeks Assessment Summary Assessment BODILY INJURY ADJUSTER continued instruction on compliance of HEP performance for mobility with cues needed for set up and direction and proper gait R LE patterning front mirror support. Improved R knee AROM and pain reduction almost none post manual. Updated HS stretch seated with no pain including APs vs supine due to pain R knee 8/10 active bend and extension. Improved R knee patterning with hip and knee flexion swing through with reduction trunk lateral viering use performance front of mirror for self corrections .. Physical Therapy Plan Frequency and Duration Frequency of Treatment 2x/Week Duration of treatment (weeks) 8 Plan of Care Start Date 08/08/24 Plan of Care End Date 10/09/24 Therapeutic Interventions Therapeutic Interventions Balance Training,Canalithic Repositioning,Coordination Training,Gait Training,Home Exercise Program,Joint Mobilizations,Manual Therapy, Neuromuscular Re-education, Patient/Caregiver Education, Self-Care/Home Management,Soft Tissue Mobilization,Taping, Therapeutic Activities, Therapeutic Exercises Modalities Cold Pack/Ice Massage,Electric Stimulation,Hot Packs, Ultrasound Next Visit Focus/Plan Next Note Type Treatment Note Next Visit Plan Consider working on walking pattern with PT in front or behind and pt and PT holding onto walking sticks to promote arm swing and step-through Con't manual interventions including TrP treatment, progressive gentle core strengthening, balance and gentle LE strengthening, may teach KT for right knee support with gait
--- NOTE | 2024-08-31 15:19 | PT.OTN ---
Current Diagnoses Pain in right knee (08/31/24) Physical Therapy Treatment Note PT-OP-A Visit Information Start: 08/06/24 08:31 Freq: Status: Active Protocol: Document 08/31/24 14:41 SP (Rec: 08/31/24 16:00 SP [id number]) Out-Patient Physical Therapy Visit Information Visit Information Visit Type Treatment Note Visit Note 16 visits through 10/04/24 Visit Start Time 14:41 Visit Stop Time 15:19 Visit Number 6 Number of EXERCISE INSTRUCTOR Visits 2 Evaluation Information Evaluation Date 08/08/24 PT-OP-B Current Condition Start: 08/06/24 08:31 Freq: Status: Active Protocol: Document 08/08/24 07:24 MB (Rec: 08/08/24 07:52 MB [id number]) Current Condition History of Current Condition Onset Date A couple of years Current Complaints Pain and buckling right knee History of Current Condition Pt reports ski injury 30 years ago where she shattered her distal RLE and she had ORIF and then hardware removal later. Pt was living on [address] for 25 years and has been putting off some health care self-care. She moved to [place] in February . She did some alternative treatments. Walking, hiking, stair climbing are all challenging. She swims everyday. Even shopping is troublesome. She does not have stairs at the house except one step to enter and she lives alone. Prior Treatments and Tests Right knee x-ray 04/10/24: IMPRESSION: Art-Stieda lesion. No acute fracture. Small right knee joint effusion. If symptoms persist with conservative management, consider cross-sectional imaging such as CT or MRI. Treatment Goals Patient/Caregiver Goals To walk without pain PT-OP-C Subjective Start: 08/06/24 08:31 Freq: Status: Active Protocol: Document 08/31/24 14:41 SP (Rec: 08/31/24 16:00 SP [id number]) OP-PT Subjective Patient Comments Patient Comments Pt almost 10 min late for appt . Reports was sore the next day after last appt. She arrives with reports pain but states was walking around [place] before came to PT today. She demonstrates decreased R knee flexion and limp lean to L when RLE advancement. PT-OP-G Mobility & Gait Start: 08/06/24 08:31 Freq: Status: Active Protocol: Document 08/08/24 07:24 MB (Rec: 08/08/24 07:52 MB [id number]) OP Gait Assessment Comments Gait Comments Pt presents with antalgic gait , favoring right leg and she has decreased right knee flexion and increased Linda angle on the right with gait PT-OP-J Posture/Palpation/Skin Start: 08/06/24 08:31 Freq: Status: Active Protocol: Document 08/08/24 07:24 MB (Rec: 08/08/24 07:52 MB [id number]) Posture Evaluation Comments Posture Comments Standing posture with barefeet : decreased weight bearing right leg, increased knee valgus right knee, increased Linda angle on the right and WB medially on the right foot, forward shoulders and left shoulder is higher than the right, increased convexity right thoracic spine, mild left convexity lumbar spine, left iliac crest higher than the right. PT-OP-K Range of Motion Start: 08/06/24 08:31 Freq: Status: Active Protocol: Document 08/08/24 07:24 MB (Rec: 08/08/24 13:19 MB [id number]) Knee Goniometric Range of Motion Knee Left Knee ROM WFL No Patient Position Supine Comments 3-110 deg Right Knee ROM WFL No Patient Position Supine Comments 3-120 deg PT-OP-M Strength Start: 08/06/24 08:31 Freq: Status: Active Protocol: Document 08/08/24 07:24 MB (Rec: 08/08/24 13:19 MB [id number]) Hip Strength Hip Manual Muscle Testing Left Flexion (L2) 4+ Good+ Abduction 4+ Good+ Right Flexion (L2) 4 Good Abduction 4 Good Knee Strength Knee Manual Muscle Testing Left Flexion (S2) 4 Good Extension (L3) 4 Good Right Flexion (S2) 4+ Good+ Extension (L3) 4+ Good+ Ankle/Foot Strength Ankle and Foot Manual Muscle Testing Bilateral Dorsiflexion (L4) 5 Normal Toe Strength Toe Manual Muscle Testing Left Great Toe Extension 5 Normal Right Great Toe Extension 5 Normal PT-OP-Q Treatments Start: 08/06/24 08:31 Freq: Status: Active Protocol: Document 08/31/24 14:41 SP (Rec: 08/31/24 16:00 SP [id number]) Therapeutic Exercises Supine Exercises TKE SLR Supine Exercise Name trialed in PT assess quad strength and comfort (recheck next tx add to HEP) Side right Resistance opp LE bent Reps/Minutes 3x5 reps Comments slight discomfort 2/10 lateral R knee, lessens with reps Abdominal drawing in Supine Exercise Name HEP Equipment Used TA: LTR, HS, sequencial march, SKFO, segmental bridge Reps/Minutes 10 reps each Comments continued core progression- cues for slower pacing, level pelvis, counting Hip rotator stretch Supine Exercise Name HEP and HO Side bilateral Resistance foot on table, grasp knee opp shld Reps/Minutes 30 sec hold Comments report pnfree, good hip stretch foot down. Gait Training Gait Activity trek pole Description if provides confidence longer distances Device Used 1 trek pole in LUE- Distance/Duration 50 ft 1 lap end tx Treatment Focus 2 pt patterning, just use for balance endurance support needed Comments cued patterning in LUE pattern with RLE, R knee flexion & heel toe, try to keep equal BLE ghanshyam stance time, improves with distance no AD Description Complete after hurdles Distance/Duration 20 ft x3 laps, 50 ft x4 lengths Treatment Focus normalizing gait Comments 1. Use trek poles arms swing patterning: Pt front/ EXERCISE INSTRUCTOR behind with cues for R knee flexion and heel toe- improvement /c distance. 2. Front mirror: continue R knee flexion /c heel toe like stepping over mini kimberley, improved midline trunk and almost equal ghanshyam Rknee flexion heel toe gait phases. Manual Therapy Treatment Consent Patient gave verbal consent for manual Yes treatment Other Other Manual Treatments Pt supine with head and legs supported: R LE: STM hamstrings, calf, quads, TFL. Jt mobs: tibfemoral AP/PA knee flexed, tibfib AP/PA knee flexed, Patellofemoral knee med/lat/sup/inferior in knee extension- improved significant pain reduction able perform heel slide and SLR. Neuro Re-Education Treatment Balance Activities hurdles Details fwd receiprocal, lateral step to- encourage knee flexion & SLS time Equipment 4 hurdles, inside //bars PRN contact balance Reps/Duration 2 laps each directions Comments cues knee bend clearance, wt shift over stance LE, improved TKE SLS and R knee flexion /c foot clearance. Self-Care/Home Management Treatment Education Patient Education Body Mechanics,Home Exercise Program,Pain Management, Posture,Safety Other Education Continued education on importance of HEP performance during ther ex and R knee flexion and heel toe patterning during hurdles and gait this tx to support carryover mechanics to support R knee ROM and strength. Improved understanding moving her knee through this ROM during gait and hurdles made it feel and walking better. PT-OP-T Assessment and Plan Start: 08/06/24 08:31 Freq: Status: Active Protocol: Document 08/31/24 14:41 SP (Rec: 08/31/24 16:00 SP [id number]) Physical Therapy Assessment Goals 3 Impairment Lack of HEP Wiping Cloth Cutter Goal (LTG) Pt will perform progressive HEP with I including pelvic realignment, flexibility, gentle strengthening and balance exercises to improve pain and function. LTG Duration 8 weeks 2 Impairment Trouble walking Wiping Cloth Cutter Goal (LTG) Pt will gait train at least 1500 feet in 6 minutes with or without AD to improve community ambulation. LTG Duration 8 weeks 1 Impairment B LE weakness Residential Goal (LTG) Pt will present with B hip flexion and abduction and knee flexion and extension to at least 4+/5 to improve functional strength. LTG Duration 8 weeks Assessment Summary Assessment Pt improved R knee flexion and tolerance TKE SLR low rep performance after manual. Education and cues required for focused awareness provided for R knee flexion with heel toe performance throughout standing activities. Pt demonstrated increase RLE stance time and knee flexion foot clearance during hurdles and carryover front of the mirror self feedback more midline trunk and normalizing walking pattern. Pt stated end tx my knee does feel better doing more correctly. Physical Therapy Plan Frequency and Duration Frequency of Treatment 2x/Week Duration of treatment (weeks) 8 Plan of Care Start Date 08/08/24 Plan of Care End Date 10/09/24 Therapeutic Interventions Therapeutic Interventions Balance Training,Canalithic Repositioning,Coordination Training,Gait Training,Home Exercise Program,Joint Mobilizations,Manual Therapy, Neuromuscular Re-education, Patient/Caregiver Education, Self-Care/Home Management,Soft Tissue Mobilization,Taping, Therapeutic Activities, Therapeutic Exercises Modalities Cold Pack/Ice Massage,Electric Stimulation,Hot Packs, Ultrasound Next Visit Focus/Plan Next Note Type Treatment Note Next Visit Plan Continue HEP review, recheck TKE SLR add to HEP if no pain quad strengthening, continue kimberley stepping for knee flexion, gait front mirror before distance for self feedback mechanics, use trek pole if needed. Add balance activities, check stair mgt ( has many home). Con't manual interventions including TrP treatment, progressive gentle core strengthening, balance and gentle LE strengthening, may teach KT for right knee support with gait
--- NOTE | 2024-09-05 08:16 | PT.OTN ---
Current Diagnoses Pain in right knee (09/05/24) Physical Therapy Treatment Note PT-OP-A Visit Information Start: 08/06/24 08:31 Freq: Status: Active Protocol: Document 09/05/24 07:32 MB (Rec: 09/05/24 08:10 MB [id number]) Out-Patient Physical Therapy Visit Information Visit Information Visit Type Progress Note Visit Note 16 visits through 10/04/24 Visit Start Time 07:32 Visit Stop Time 08:12 Visit Number 7 Number of ROOM INSPECTOR Visits 3 Evaluation Information Evaluation Date 08/08/24 PT-OP-B Current Condition Start: 08/06/24 08:31 Freq: Status: Active Protocol: Document 08/08/24 07:24 MB (Rec: 08/08/24 07:52 MB [id number]) Current Condition History of Current Condition Onset Date A couple of years Current Complaints Pain and buckling right knee History of Current Condition Pt reports ski injury 30 years ago where she shattered her distal RLE and she had ORIF and then hardware removal later. Pt was living on [address] for 25 years and has been putting off some health care self-care. She moved to [place] in February . She did some alternative treatments. Walking, hiking, stair climbing are all challenging. She swims everyday. Even shopping is troublesome. She does not have stairs at the house except one step to enter and she lives alone. Prior Treatments and Tests Right knee x-ray 04/10/24: IMPRESSION: Art-Stieda lesion. No acute fracture. Small right knee joint effusion. If symptoms persist with conservative management, consider cross-sectional imaging such as CT or MRI. Treatment Goals Patient/Caregiver Goals To walk without pain PT-OP-C Subjective Start: 08/06/24 08:31 Freq: Status: Active Protocol: Document 09/05/24 07:32 MB (Rec: 09/05/24 08:10 MB [id number]) OP-PT Subjective Patient Comments Patient Comments Pt states she feels a little better. The exercises are helpful but she cannot name which ones. She is doing better with her walking. She is uncertain about her balance and she has not done stairs. Standing is challenging. She con't with pain and it gets stuck. PT-OP-G Mobility & Gait Start: 08/06/24 08:31 Freq: Status: Active Protocol: Document 08/08/24 07:24 MB (Rec: 08/08/24 07:52 MB [id number]) OP Gait Assessment Comments Gait Comments Pt presents with antalgic gait , favoring right leg and she has decreased right knee flexion and increased Linda angle on the right with gait PT-OP-J Posture/Palpation/Skin Start: 08/06/24 08:31 Freq: Status: Active Protocol: Document 08/08/24 07:24 MB (Rec: 08/08/24 07:52 MB [id number]) Posture Evaluation Comments Posture Comments Standing posture with barefeet : decreased weight bearing right leg, increased knee valgus right knee, increased Linda angle on the right and WB medially on the right foot, forward shoulders and left shoulder is higher than the right, increased convexity right thoracic spine, mild left convexity lumbar spine, left iliac crest higher than the right. PT-OP-K Range of Motion Start: 08/06/24 08:31 Freq: Status: Active Protocol: Document 08/08/24 07:24 MB (Rec: 08/08/24 13:19 MB [id number]) Knee Goniometric Range of Motion Knee Left Knee ROM WFL No Patient Position Supine Comments 3-110 deg Right Knee ROM WFL No Patient Position Supine Comments 3-120 deg PT-OP-M Strength Start: 08/06/24 08:31 Freq: Status: Active Protocol: Document 08/08/24 07:24 MB (Rec: 08/08/24 13:19 MB [id number]) Hip Strength Hip Manual Muscle Testing Left Flexion (L2) 4+ Good+ Abduction 4+ Good+ Right Flexion (L2) 4 Good Abduction 4 Good Knee Strength Knee Manual Muscle Testing Left Flexion (S2) 4 Good Extension (L3) 4 Good Right Flexion (S2) 4+ Good+ Extension (L3) 4+ Good+ Ankle/Foot Strength Ankle and Foot Manual Muscle Testing Bilateral Dorsiflexion (L4) 5 Normal Toe Strength Toe Manual Muscle Testing Left Great Toe Extension 5 Normal Right Great Toe Extension 5 Normal PT-OP-Q Treatments Start: 08/06/24 08:31 Freq: Status: Active Protocol: Document 09/05/24 07:32 MB (Rec: 09/05/24 08:10 MB [id number]) Therapeutic Exercises Other Exercises LE MMT Comments See progress notes today HEP review Comments Performed today during progress note and reviewed handouts Gait Training Gait Activity 6MWT Comments See comments under goals today Manual Therapy Treatment Consent Patient gave verbal consent for manual Yes treatment Other Other Manual Treatments Pt supine: Trp right vastus medialis, vastus lateralis and STM right adductors PT-OP-T Assessment and Plan Start: 08/06/24 08:31 Freq: Status: Active Protocol: Document 09/05/24 07:32 MB (Rec: 09/05/24 08:10 MB [id number]) Physical Therapy Assessment Goals 3 Impairment Lack of HEP Prison Goal (LTG) Pt will perform progressive HEP with I including pelvic realignment, flexibility, gentle strengthening and balance exercises to improve pain and function. 09/05/24: Pt is performing pelvic realignment, core, and flexibility exercises. LTG Duration 8 weeks 2 Impairment Trouble walking Distribution Driver Goal (LTG) Pt will gait train at least 1500 feet in 6 minutes with or without AD to improve community ambulation. 09/05/24: Pt gait trains 907 feet in 6 minutes with antalgic gait the whole time, decreased right knee flexion, increased Linda angle on the right, increased valgus on the right, increased size of right leg compared to left and pt c/o right knee pain and left hip pain. She takes one rest break with gait. LTG Duration 8 weeks 1 Impairment B LE weakness Prison Goal (LTG) Pt will present with B hip flexion and abduction and knee flexion and extension to at least 4+/5 to improve functional strength. 09/05/24: B hip flexion and abduction 4+/5; right knee extension 4+/5; right knee flexion 3+/5; left knee flexion and extension 4+/5 LTG Duration 8 weeks Assessment Summary Assessment Pt reports she is feeling a little better with exercises but she con't with pain with gait and standing and she con' t with antalgic gait. Pt con't with right knee flexion weakness. Will con't PT course through the end of the year. PT recommends return to PCP for orthopedist referral and possibly further testing in setting of MCL calcification. Physical Therapy Plan Frequency and Duration Frequency of Treatment 2x/Week Duration of treatment (weeks) 8 Plan of Care Start Date 08/08/24 Plan of Care End Date 10/09/24 Therapeutic Interventions Therapeutic Interventions Balance Training,Canalithic Repositioning,Coordination Training,Gait Training,Home Exercise Program,Joint Mobilizations,Manual Therapy, Neuromuscular Re-education, Patient/Caregiver Education, Self-Care/Home Management,Soft Tissue Mobilization,Taping, Therapeutic Activities, Therapeutic Exercises Modalities Cold Pack/Ice Massage,Electric Stimulation,Hot Packs, Ultrasound Other Referrals/Consults Referrals/Consults Recommended Recommend orthopedic consult Next Visit Focus/Plan Next Note Type Treatment Note Next Visit Plan HEP review and gentle manual work
--- NOTE | 2024-09-07 13:44 | PT.OTN ---
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 Pt was living on [address] for 25 years and has been putting off some health care self-care. She moved to [place] in February . She did some alternative treatments. Walking, hiking, stair climbing are all challenging. She swims everyday. Even shopping is troublesome. She does not have stairs at the house except one step to enter and she lives alone. Prior Treatments and Tests Right knee x-ray 04/10/24: IMPRESSION: Art-Stieda lesion. No acute fracture. Small right knee joint effusion. If symptoms persist with conservative management, consider cross-sectional imaging such as CT or MRI. Treatment Goals Patient/Caregiver Goals To walk without pain PT-OP-C Subjective Start: 08/06/24 08:31 Freq: Status: Active Protocol: Document 09/07/24 13:02 SP (Rec: 09/07/24 13:50 SP [id number]) OP-PT Subjective Patient Comments Patient Comments Pt arrives with decreased R knee flexion and DF wt shifting for RLE foot clearance gait patterning. REports still having pain in R knee mostly when stand to long and gait > 5 min tires quickly. She states when has to stand longer locks knee but trying to stop this. PT-OP-G Mobility & Gait Start: 08/06/24 08:31 Freq: Status: Active Protocol: Document 08/08/24 07:24 MB (Rec: 08/08/24 07:52 MB [id number]) OP Gait Assessment Comments Gait Comments Pt presents with antalgic gait , favoring right leg and she has decreased right knee flexion and increased Linda angle on the right with gait PT-OP-J Posture/Palpation/Skin Start: 08/06/24 08:31 Freq: Status: Active Protocol: Document 08/08/24 07:24 MB (Rec: 08/08/24 07:52 MB [id number]) Posture Evaluation Comments Posture Comments Standing posture with barefeet : decreased weight bearing right leg, increased knee valgus right knee, increased Linda angle on the right and WB medially on the right foot, forward shoulders and left shoulder is higher than the right, increased convexity right thoracic spine, mild left convexity lumbar spine, left iliac crest higher than the right. PT-OP-K Range of Motion Start: 08/06/24 08:31 Freq: Status: Active Protocol: Document 08/08/24 07:24 MB (Rec: 08/08/24 13:19 MB [id number]) Knee Goniometric Range of Motion Knee Left Knee ROM WFL No Patient Position Supine Comments 3-110 deg Right Knee ROM WFL No Patient Position Supine Comments 3-120 deg PT-OP-M Strength Start: 08/06/24 08:31 Freq: Status: Active Protocol: Document 08/08/24 07:24 MB (Rec: 08/08/24 13:19 MB [id number]) Hip Strength Hip Manual Muscle Testing Left Flexion (L2) 4+ Good+ Abduction 4+ Good+ Right Flexion (L2) 4 Good Abduction 4 Good Knee Strength Knee Manual Muscle Testing Left Flexion (S2) 4 Good Extension (L3) 4 Good Right Flexion (S2) 4+ Good+ Extension (L3) 4+ Good+ Ankle/Foot Strength Ankle and Foot Manual Muscle Testing Bilateral Dorsiflexion (L4) 5 Normal Toe Strength Toe Manual Muscle Testing Left Great Toe Extension 5 Normal Right Great Toe Extension 5 Normal PT-OP-Q Treatments Start: 08/06/24 08:31 Freq: Status: Active Protocol: Document 09/07/24 13:02 SP (Rec: 09/07/24 13:50 SP [id number]) Therapeutic Exercises Supine Exercises TKE SLR Supine Exercise Name today Side right Resistance opp LE bent Reps/Minutes x10 Comments improved pnfree increased reps Abdominal drawing in Supine Exercise Name HEP Equipment Used TA: LTR, Heel slide, sequencial march, SKFO, Reps/Minutes 20 reps alternating Comments improved R knee mobiltiy Standing Exercises step ups Standing Exercise Name trialed in PT Side right Equipment Used 4 step, 6 step, Micheal HR Reps/Minutes 5 reps each side, pnfree, Comments discomfort only 6 step- DC for now HS curls Standing Exercise Name added to HEP /c HO Side bilateral Resistance AROM Equipment Used rail support Reps/Minutes 20 reps alternating Comments good painfree calf raises Standing Exercise Name Toe raise, heel raise: added to HEP /c HO Side bilateral Resistance AROM Equipment Used rail support Reps/Minutes x10 Comments cued not wt shift buttocks back Calf stretch Standing Exercise Name reviewed today Side bilateral Reps/Minutes 1 rep each gastroc and soleus each leg Comments 30 sec hold Manual Therapy Treatment Consent Patient gave verbal consent for manual Yes treatment Joint Mobilizations R knee Joint tibiofemoral, prox tibfib Direction A<>P Grade II Comments gentle ROM into flexion range- good feedback lessening tension and more no pain movement in R knee. Able to complete heel slide no pain after. Other Other Manual Treatments Pt supine: Manual STMs right vastus medialis, vastus lateralis and adductors Self-Care/Home Management Treatment Education Patient Education Body Mechanics,Home Exercise Program,Pain Management, Posture,Safety Other Education Added HS curl, heel/toe raises . Education: R knee flexion, heel toe gait and soft knee stance during stationary stance during kitchen ADLs for progression standing tolerance and muscular HS cocontract /c quad facilitation activity. Improved post ther ex today, trunk more midline and R knee mechanics leaving. PT-OP-T Assessment and Plan Start: 08/06/24 08:31 Freq: Status: Active Protocol: Document 09/07/24 13:02 SP (Rec: 09/07/24 13:50 SP [id number]) Physical Therapy Assessment Goals 3 Impairment Lack of HEP Assisted Goal (LTG) Pt will perform progressive HEP with I including pelvic realignment, flexibility, gentle strengthening and balance exercises to improve pain and function. 09/05/24: Pt is performing pelvic realignment, core, and flexibility exercises. 09/07/24: added standing heel/ toe raises and hamstring curl, pnfree. LTG Duration 8 weeks progression 09/07/24 2 Impairment Trouble walking Pcts Goal (LTG) Pt will gait train at least 1500 feet in 6 minutes with or without AD to improve community ambulation. 09/05/24: Pt gait trains 907 feet in 6 minutes with antalgic gait the whole time, decreased right knee flexion, increased Linda angle on the right, increased valgus on the right, increased size of right leg compared to left and pt c/o right knee pain and left hip pain. She takes one rest break with gait. LTG Duration 8 weeks 1 Impairment B LE weakness Pcts Goal (LTG) Pt will present with B hip flexion and abduction and knee flexion and extension to at least 4+/5 to improve functional strength. 09/05/24: B hip flexion and abduction 4+/5; right knee extension 4+/5; right knee flexion 3+/5; left knee flexion and extension 4+/5 LTG Duration 8 weeks Assessment Summary Assessment Pt reports decreased tension in R knee after manual, improved soft R knee stance with cuing during added calf/ toe raises and alternating HS curls, rail support for confidence R LE stance time. Ed continue R knee flexion and DF swing through gait. Physical Therapy Plan Frequency and Duration Frequency of Treatment 2x/Week Duration of treatment (weeks) 8 Plan of Care Start Date 08/08/24 Plan of Care End Date 10/09/24 Therapeutic Interventions Therapeutic Interventions Balance Training,Canalithic Repositioning,Coordination Training,Gait Training,Home Exercise Program,Joint Mobilizations,Manual Therapy, Neuromuscular Re-education, Patient/Caregiver Education, Self-Care/Home Management,Soft Tissue Mobilization,Taping, Therapeutic Activities, Therapeutic Exercises Modalities Cold Pack/Ice Massage,Electric Stimulation,Hot Packs, Ultrasound Other Referrals/Consults Referrals/Consults Recommended Recommend orthopedic consult Next Visit Focus/Plan Next Note Type Treatment Note Next Visit Plan Check 6MWT for goal progression awareness. Recheck standing HS curl, HRTR, gait mechanics, try incorporate hurdles for functional ankle/ mobility next tx. Progress balance activities POC: HEP review and gentle manual work
--- NOTE | 2024-09-11 08:15 | PT.OTN ---
Current Diagnoses Pain in right knee (09/11/24) Physical Therapy Treatment Note PT-OP-A Visit Information Start: 08/06/24 08:31 Freq: Status: Active Protocol: Document 09/11/24 07:30 MB (Rec: 09/11/24 08:14 MB [id number]) Out-Patient Physical Therapy Visit Information Visit Information Visit Type Treatment Note Visit Note 16 visits through 10/04/24 Visit Start Time 07:30 Visit Stop Time 08:10 Visit Number 9 Number of STOCK PULLER Visits 0 Evaluation Information Evaluation Date 08/08/24 PT-OP-B Current Condition Start: 08/06/24 08:31 Freq: Status: Active Protocol: Document 08/08/24 07:24 MB (Rec: 08/08/24 07:52 MB [id number]) Current Condition History of Current Condition Onset Date A couple of years Current Complaints Pain and buckling right knee History of Current Condition Pt reports ski injury 30 years ago where she shattered her distal RLE and she had ORIF and then hardware removal later. Pt was living on [address] for 25 years and has been putting off some health care self-care. She moved to [place] in February . She did some alternative treatments. Walking, hiking, stair climbing are all challenging. She swims everyday. Even shopping is troublesome. She does not have stairs at the house except one step to enter and she lives alone. Prior Treatments and Tests Right knee x-ray 04/10/24: IMPRESSION: Art-Stieda lesion. No acute fracture. Small right knee joint effusion. If symptoms persist with conservative management, consider cross-sectional imaging such as CT or MRI. Treatment Goals Patient/Caregiver Goals To walk without pain PT-OP-C Subjective Start: 08/06/24 08:31 Freq: Status: Active Protocol: Document 09/11/24 07:30 MB (Rec: 09/11/24 08:14 MB [id number]) OP-PT Subjective Patient Comments Patient Comments Pt is about the same. She sent a portal message to provider to ask about an orthopedic surgeon who might know about her condition. PT-OP-G Mobility & Gait Start: 08/06/24 08:31 Freq: Status: Active Protocol: Document 08/08/24 07:24 MB (Rec: 08/08/24 07:52 MB [id number]) OP Gait Assessment Comments Gait Comments Pt presents with antalgic gait , favoring right leg and she has decreased right knee flexion and increased Linda angle on the right with gait PT-OP-J Posture/Palpation/Skin Start: 08/06/24 08:31 Freq: Status: Active Protocol: Document 08/08/24 07:24 MB (Rec: 08/08/24 07:52 MB [id number]) Posture Evaluation Comments Posture Comments Standing posture with barefeet : decreased weight bearing right leg, increased knee valgus right knee, increased Linda angle on the right and WB medially on the right foot, forward shoulders and left shoulder is higher than the right, increased convexity right thoracic spine, mild left convexity lumbar spine, left iliac crest higher than the right. PT-OP-K Range of Motion Start: 08/06/24 08:31 Freq: Status: Active Protocol: Document 08/08/24 07:24 MB (Rec: 08/08/24 13:19 MB [id number]) Knee Goniometric Range of Motion Knee Left Knee ROM WFL No Patient Position Supine Comments 3-110 deg Right Knee ROM WFL No Patient Position Supine Comments 3-120 deg PT-OP-M Strength Start: 08/06/24 08:31 Freq: Status: Active Protocol: Document 08/08/24 07:24 MB (Rec: 08/08/24 13:19 MB [id number]) Hip Strength Hip Manual Muscle Testing Left Flexion (L2) 4+ Good+ Abduction 4+ Good+ Right Flexion (L2) 4 Good Abduction 4 Good Knee Strength Knee Manual Muscle Testing Left Flexion (S2) 4 Good Extension (L3) 4 Good Right Flexion (S2) 4+ Good+ Extension (L3) 4+ Good+ Ankle/Foot Strength Ankle and Foot Manual Muscle Testing Bilateral Dorsiflexion (L4) 5 Normal Toe Strength Toe Manual Muscle Testing Left Great Toe Extension 5 Normal Right Great Toe Extension 5 Normal PT-OP-Q Treatments Start: 08/06/24 08:31 Freq: Status: Active Protocol: Document 09/11/24 07:30 MB (Rec: 09/11/24 08:14 MB [id number]) Therapeutic Exercises Supine Exercises Hook lying clam Supine Exercise Name HEP and HO Side bilateral Reps/Minutes 10 reps, cues for pelvic tilt, abd drawing in, glute squeeze TKE SLR Supine Exercise Name HEP and HO today Side bilateral Comments Several reps with slow count ascend and descend Abdominal drawing in Supine Exercise Name Tried bridge today with band and cramped Comments Did not give bridge with band for home d/t cramping Hip rotator stretch Supine Exercise Name Reviewed from HEP Side bilateral Equipment Used Towel behind leg Comments 30 sec hold each leg Adductor stretch Supine Exercise Name Reviewed from HEP today Side bilateral Comments 30 sec hold, a view reps each leg Regan stretch Supine Exercise Name Reviewed from HEP today Side bilateral Comments 30 sec hold B Manual Therapy Treatment Consent Patient gave verbal consent for manual Yes treatment Other Other Manual Treatments Pt supine: STM right vastus lateralis, adductors, medial hamstrings PT-OP-T Assessment and Plan Start: 08/06/24 08:31 Freq: Status: Active Protocol: Document 09/11/24 07:30 MB (Rec: 09/11/24 08:14 MB [id number]) Physical Therapy Assessment Goals 3 Impairment Lack of HEP Medical Typist Goal (LTG) Pt will perform progressive HEP with I including pelvic realignment, flexibility, gentle strengthening and balance exercises to improve pain and function. 09/05/24: Pt is performing pelvic realignment, core, and flexibility exercises. 09/07/24: added standing heel/ toe raises and hamstring curl, pnfree. LTG Duration 8 weeks progression 09/07/24 2 Impairment Trouble walking Penitentiary Goal (LTG) Pt will gait train at least 1500 feet in 6 minutes with or without AD to improve community ambulation. 09/05/24: Pt gait trains 907 feet in 6 minutes with antalgic gait the whole time, decreased right knee flexion, increased Linda angle on the right, increased valgus on the right, increased size of right leg compared to left and pt c/o right knee pain and left hip pain. She takes one rest break with gait. LTG Duration 8 weeks 1 Impairment B LE weakness Medical Typist Goal (LTG) Pt will present with B hip flexion and abduction and knee flexion and extension to at least 4+/5 to improve functional strength. 09/05/24: B hip flexion and abduction 4+/5; right knee extension 4+/5; right knee flexion 3+/5; left knee flexion and extension 4+/5 LTG Duration 8 weeks Assessment Summary Assessment Reviewed HEP today and added SLR and hook lying clam. Progressive strengthening and balance in standing may exacerbate her symptoms given B knee issues. She is active in the pool. Physical Therapy Plan Frequency and Duration Frequency of Treatment 2x/Week Duration of treatment (weeks) 8 Plan of Care Start Date 08/08/24 Plan of Care End Date 10/09/24 Therapeutic Interventions Therapeutic Interventions Balance Training,Canalithic Repositioning,Coordination Training,Gait Training,Home Exercise Program,Joint Mobilizations,Manual Therapy, Neuromuscular Re-education, Patient/Caregiver Education, Self-Care/Home Management,Soft Tissue Mobilization,Taping, Therapeutic Activities, Therapeutic Exercises Modalities Cold Pack/Ice Massage,Electric Stimulation,Hot Packs, Ultrasound Other Referrals/Consults Referrals/Consults Recommended Recommend orthopedic consult Next Visit Focus/Plan Next Note Type Treatment Note Next Visit Plan Review HEP as needed, progressive standing balance and strengthening may be too much for pt d/t knee issues, ongoing manual work and d/c , consider KT for knee when she walks
--- NOTE | 2024-09-13 08:14 | PT.OTN ---
Current Diagnoses Pain in right knee (09/13/24) Physical Therapy Treatment Note PT-OP-A Visit Information Start: 08/06/24 08:31 Freq: Status: Active Protocol: Document 09/13/24 07:34 SP (Rec: 09/13/24 08:46 SP [id number]) Out-Patient Physical Therapy Visit Information Visit Information Visit Type Treatment Note Visit Note 16 visits through 10/04/24 Visit Start Time 07:34 Visit Stop Time 08:14 Visit Number 10 Number of EMPLOYMENT ADVISOR Visits 1 Evaluation Information Evaluation Date 08/08/24 PT-OP-B Current Condition Start: 08/06/24 08:31 Freq: Status: Active Protocol: Document 08/08/24 07:24 MB (Rec: 08/08/24 07:52 MB [id number]) Current Condition History of Current Condition Onset Date A couple of years Current Complaints Pain and buckling right knee History of Current Condition Pt reports ski injury 30 years ago where she shattered her distal RLE and she had ORIF and then hardware removal later. Pt was living on [address] for 25 years and has been putting off some health care self-care. She moved to [place] in February . She did some alternative treatments. Walking, hiking, stair climbing are all challenging. She swims everyday. Even shopping is troublesome. She does not have stairs at the house except one step to enter and she lives alone. Prior Treatments and Tests Right knee x-ray 04/10/24: IMPRESSION: Art-Stieda lesion. No acute fracture. Small right knee joint effusion. If symptoms persist with conservative management, consider cross-sectional imaging such as CT or MRI. Treatment Goals Patient/Caregiver Goals To walk without pain PT-OP-C Subjective Start: 08/06/24 08:31 Freq: Status: Active Protocol: Document 09/13/24 07:34 SP (Rec: 09/13/24 08:46 SP [id number]) OP-PT Subjective Patient Comments Patient Comments Pt reports was out and about Yesterday so didn't do exercises thought that was enough and was sore. Is going to the pool after PT today. She said not sore after PT exercises only after walk alot but seems to recover quicker and not in pain. She reports her stretching at the pool has more range and not as tight. PT-OP-G Mobility & Gait Start: 08/06/24 08:31 Freq: Status: Active Protocol: Document 08/08/24 07:24 MB (Rec: 08/08/24 07:52 MB [id number]) OP Gait Assessment Comments Gait Comments Pt presents with antalgic gait , favoring right leg and she has decreased right knee flexion and increased Linda angle on the right with gait PT-OP-J Posture/Palpation/Skin Start: 08/06/24 08:31 Freq: Status: Active Protocol: Document 08/08/24 07:24 MB (Rec: 08/08/24 07:52 MB [id number]) Posture Evaluation Comments Posture Comments Standing posture with barefeet : decreased weight bearing right leg, increased knee valgus right knee, increased Linda angle on the right and WB medially on the right foot, forward shoulders and left shoulder is higher than the right, increased convexity right thoracic spine, mild left convexity lumbar spine, left iliac crest higher than the right. PT-OP-K Range of Motion Start: 08/06/24 08:31 Freq: Status: Active Protocol: Document 08/08/24 07:24 MB (Rec: 08/08/24 13:19 MB [id number]) Knee Goniometric Range of Motion Knee Left Knee ROM WFL No Patient Position Supine Comments 3-110 deg Right Knee ROM WFL No Patient Position Supine Comments 3-120 deg PT-OP-M Strength Start: 08/06/24 08:31 Freq: Status: Active Protocol: Document 08/08/24 07:24 MB (Rec: 08/08/24 13:19 MB [id number]) Hip Strength Hip Manual Muscle Testing Left Flexion (L2) 4+ Good+ Abduction 4+ Good+ Right Flexion (L2) 4 Good Abduction 4 Good Knee Strength Knee Manual Muscle Testing Left Flexion (S2) 4 Good Extension (L3) 4 Good Right Flexion (S2) 4+ Good+ Extension (L3) 4+ Good+ Ankle/Foot Strength Ankle and Foot Manual Muscle Testing Bilateral Dorsiflexion (L4) 5 Normal Toe Strength Toe Manual Muscle Testing Left Great Toe Extension 5 Normal Right Great Toe Extension 5 Normal PT-OP-Q Treatments Start: 08/06/24 08:31 Freq: Status: Active Protocol: Document 09/13/24 07:34 SP (Rec: 09/13/24 08:46 SP [id number]) Therapeutic Exercises Supine Exercises Hip rotator stretch Supine Exercise Name Reviewed from HEP Side bilateral Equipment Used Towel behind leg Reps/Minutes 30 sec hold each leg Comments cued breath- good hip stretch- ed good for walking recovery Adductor stretch Supine Exercise Name Reviewed from HEP today Side bilateral Reps/Minutes 30 sec hold Comments review ed for walking recovery Regan stretch Supine Exercise Name Reviewed from HEP today Side bilateral Reps/Minutes 30 sec hold B Comments cued breath- ed for walking recovery Standing Exercises ankle and knee mobility at step Standing Exercise Name initiated for ROM in knee and ankle Side bilateral Comments ed for decrease knee and ankle stiffness- also felt calf stretch. Manual Therapy Treatment Consent Patient gave verbal consent for manual Yes treatment Other Other Manual Treatments Pt supine: STM right vastus lateralis, adductors, medial hamstrings, Peroneals. Tib femoral A<>P, Tibfib PA, Ankle PROM and Talocrual PA- ip Neuro Re-Education Treatment Balance Activities tandem walking Details added to HEP- written on HO Comments hallway finger glide on wall corner balance Details Tandem, SLS- added to HEP /c HO Surface floor Comments stationary, HTs Cued even WB more forward leg improved. Self-Care/Home Management Treatment Education Patient Education Body Mechanics,Home Exercise Program,Pain Management, Posture,Safety Other Education TIme spent throughout tx education carryover gait mechanics RLE knee flexion and heel toe performance midline posture, consistant performance HEP stretching, ROM and strengthening for functional s mobility. PT-OP-T Assessment and Plan Start: 08/06/24 08:31 Freq: Status: Active Protocol: Document 09/13/24 07:34 SP (Rec: 09/13/24 08:46 SP [id number]) Physical Therapy Assessment Goals 3 Impairment Lack of HEP [employer] Goal (LTG) Pt will perform progressive HEP with I including pelvic realignment, flexibility, gentle strengthening and balance exercises to improve pain and function. 09/05/24: Pt is performing pelvic realignment, core, and flexibility exercises. 09/07/24: added standing heel/ toe raises and hamstring curl, pnfree. LTG Duration 8 weeks progression 09/07/24 2 Impairment Trouble walking [employer] Goal (LTG) Pt will gait train at least 1500 feet in 6 minutes with or without AD to improve community ambulation. 09/05/24: Pt gait trains 907 feet in 6 minutes with antalgic gait the whole time, decreased right knee flexion, increased Linda angle on the right, increased valgus on the right, increased size of right leg compared to left and pt c/o right knee pain and left hip pain. She takes one rest break with gait. LTG Duration 8 weeks 1 Impairment B LE weakness [employer] Goal (LTG) Pt will present with B hip flexion and abduction and knee flexion and extension to at least 4+/5 to improve functional strength. 09/05/24: B hip flexion and abduction 4+/5; right knee extension 4+/5; right knee flexion 3+/5; left knee flexion and extension 4+/5 LTG Duration 8 weeks Assessment Summary Assessment Reviewed stretching with education performance after exercises and walking for soreness recovery, good response. Discussed standing exercise doing well with and will perform review next tx. PRogressed balance today tandem, SLS and tandem walking with cues for elongated posture, TA and COG over JOSELUIS with improved midline stability and stance but not timed. Initiated R knee and ankle mobility use step/chair for ROM stiffness reduction carryover self response due to improved post manual today. Provided HOs for carryover set up. Education for importance of carryover stretching, strengthening HEP and self awareness of gait phase R LE knee flexion and heel toe for carryover normalizing walking. Pt is awaiting orthopedic appt. Physical Therapy Plan Frequency and Duration Frequency of Treatment 2x/Week Duration of treatment (weeks) 8 Plan of Care Start Date 08/08/24 Plan of Care End Date 10/09/24 Therapeutic Interventions Therapeutic Interventions Balance Training,Canalithic Repositioning,Coordination Training,Gait Training,Home Exercise Program,Joint Mobilizations,Manual Therapy, Neuromuscular Re-education, Patient/Caregiver Education, Self-Care/Home Management,Soft Tissue Mobilization,Taping, Therapeutic Activities, Therapeutic Exercises Modalities Cold Pack/Ice Massage,Electric Stimulation,Hot Packs, Ultrasound Other Referrals/Consults Referrals/Consults Recommended Recommend orthopedic consult Next Visit Focus/Plan Next Note Type Treatment Note Next Visit Plan REview added tandem, SLS and tandem walking. Continue gait mechanics and caution strengthening may be too much for pt d/t knee issues more functional ROM, ongoing manual work and d/c 09/25, consider KT for knee when she walks/ hikes
--- NOTE | 2024-09-18 08:15 | PT.OTN ---
Current Diagnoses Pain in right knee (09/18/24) Physical Therapy Treatment Note PT-OP-A Visit Information Start: 08/06/24 08:31 Freq: Status: Active Protocol: Document 09/18/24 07:32 SP (Rec: 09/18/24 08:18 SP [id number]) Out-Patient Physical Therapy Visit Information Visit Information Visit Type Treatment Note Visit Note 16 visits through 10/04/24 Visit Start Time 07:32 Visit Stop Time 08:15 Visit Number 11 Number of WELLNESS EDUCATOR Visits 2 Evaluation Information Evaluation Date 08/08/24 PT-OP-B Current Condition Start: 08/06/24 08:31 Freq: Status: Active Protocol: Document 08/08/24 07:24 MB (Rec: 08/08/24 07:52 MB [id number]) Current Condition History of Current Condition Onset Date A couple of years Current Complaints Pain and buckling right knee History of Current Condition Pt reports ski injury 30 years ago where she shattered her distal RLE and she had ORIF and then hardware removal later. Pt was living on [address] for 25 years and has been putting off some health care self-care. She moved to [place] in February . She did some alternative treatments. Walking, hiking, stair climbing are all challenging. She swims everyday. Even shopping is troublesome. She does not have stairs at the house except one step to enter and she lives alone. Prior Treatments and Tests Right knee x-ray 04/10/24: IMPRESSION: Art-Stieda lesion. No acute fracture. Small right knee joint effusion. If symptoms persist with conservative management, consider cross-sectional imaging such as CT or MRI. Treatment Goals Patient/Caregiver Goals To walk without pain PT-OP-C Subjective Start: 08/06/24 08:31 Freq: Status: Active Protocol: Document 09/18/24 07:32 SP (Rec: 09/18/24 08:18 SP [id number]) OP-PT Subjective Patient Comments Patient Comments Pt reports has only done the heel toe walking since last tx , was to busy to fit in the rest. . Has had time and trying to be more aware of proper gait mechanics. Arrived with improved R knee flexion and DF swing through and soft TKE during midstance time. Demonstrates slight R hip hike . Pt stated will call [facility] and see of referral approved so can call and make appt. PT-OP-G Mobility & Gait Start: 08/06/24 08:31 Freq: Status: Active Protocol: Document 08/08/24 07:24 MB (Rec: 08/08/24 07:52 MB [id number]) OP Gait Assessment Comments Gait Comments Pt presents with antalgic gait , favoring right leg and she has decreased right knee flexion and increased Linda angle on the right with gait PT-OP-J Posture/Palpation/Skin Start: 08/06/24 08:31 Freq: Status: Active Protocol: Document 08/08/24 07:24 MB (Rec: 08/08/24 07:52 MB [id number]) Posture Evaluation Comments Posture Comments Standing posture with barefeet : decreased weight bearing right leg, increased knee valgus right knee, increased Linda angle on the right and WB medially on the right foot, forward shoulders and left shoulder is higher than the right, increased convexity right thoracic spine, mild left convexity lumbar spine, left iliac crest higher than the right. PT-OP-K Range of Motion Start: 08/06/24 08:31 Freq: Status: Active Protocol: Document 08/08/24 07:24 MB (Rec: 08/08/24 13:19 MB [id number]) Knee Goniometric Range of Motion Knee Left Knee ROM WFL No Patient Position Supine Comments 3-110 deg Right Knee ROM WFL No Patient Position Supine Comments 3-120 deg PT-OP-M Strength Start: 08/06/24 08:31 Freq: Status: Active Protocol: Document 08/08/24 07:24 MB (Rec: 08/08/24 13:19 MB [id number]) Hip Strength Hip Manual Muscle Testing Left Flexion (L2) 4+ Good+ Abduction 4+ Good+ Right Flexion (L2) 4 Good Abduction 4 Good Knee Strength Knee Manual Muscle Testing Left Flexion (S2) 4 Good Extension (L3) 4 Good Right Flexion (S2) 4+ Good+ Extension (L3) 4+ Good+ Ankle/Foot Strength Ankle and Foot Manual Muscle Testing Bilateral Dorsiflexion (L4) 5 Normal Toe Strength Toe Manual Muscle Testing Left Great Toe Extension 5 Normal Right Great Toe Extension 5 Normal PT-OP-Q Treatments Start: 08/06/24 08:31 Freq: Status: Active Protocol: Document 09/18/24 07:32 SP (Rec: 09/18/24 08:18 SP [id number]) Cardio Equipment Bicycle (Upright) Duration (Minutes) 6 Resistance 4 Seat Position 5 Other 65-70RPMs- pnfree, use step to assist on/off Therapeutic Exercises Supine Exercises Hip rotator stretch Supine Exercise Name Reviewed from HEP Side bilateral Equipment Used Towel behind leg Reps/Minutes 30 sec hold each leg Comments cued breath- good hip stretch- ed good for walking recovery Standing Exercises ankle and knee mobility at step Standing Exercise Name ROM in knee and ankle- declined HO Side right Resistance AAROM Reps/Minutes x10 Comments improved R knee mobility HS curls Standing Exercise Name reviewed today Side bilateral Resistance AROM Equipment Used rail support Reps/Minutes 20 reps alternating Comments good painfree calf raises Standing Exercise Name Toe raise, heel raise: reviewed Side bilateral Resistance AROM Equipment Used rail support Reps/Minutes x10 Comments cued not wt shift buttocks back Calf stretch Standing Exercise Name reviewed today Side bilateral Reps/Minutes 1 rep each gastroc and soleus each leg Comments 30 sec hold Manual Therapy Treatment Consent Patient gave verbal consent for manual Yes treatment Other Other Manual Treatments Pt supine: STM right vastus lateralis, adductors, medial hamstrings, Peroneals. Tib femoral A<>P, Tibfib PA, Ankle PROM and Talocrual PA- ip Neuro Re-Education Treatment Balance Activities tandem walking Details reviewed today Comments hallway finger glide on wall corner balance Details Tandem, SLS- reviewed Surface floor Comments Tandem- HTs Cued more fwd front foot, even WB. SLS- LLE 5 sec, RLE 3sec hurdles Details fwd receiprocal Equipment 6 hurdles, inside //bars PRN contact balance Reps/Duration 2 laps Comments cues Rknee bend and bigger step foot clearance, wt shift over stance LE, improved TKE SLS and R knee flexion /c foot clearance. Self-Care/Home Management Treatment Education Patient Education Home Exercise Program Other Education TIme spent throughout tx education on compliance with HEP for strength support for normalizing ROM and mobility with verbalizing in agreement. PT-OP-T Assessment and Plan Start: 08/06/24 08:31 Freq: Status: Active Protocol: Document 09/18/24 07:32 SP (Rec: 09/18/24 08:18 SP [id number]) Physical Therapy Assessment Goals 3 Impairment Lack of HEP [facility] Goal (LTG) Pt will perform progressive HEP with I including pelvic realignment, flexibility, gentle strengthening and balance exercises to improve pain and function. 09/05/24: Pt is performing pelvic realignment, core, and flexibility exercises. 09/07/24: added standing heel/ toe raises and hamstring curl, pnfree. LTG Duration 8 weeks progression 09/07/24 2 Impairment Trouble walking [facility] Goal (LTG) Pt will gait train at least 1500 feet in 6 minutes with or without AD to improve community ambulation. 09/05/24: Pt gait trains 907 feet in 6 minutes with antalgic gait the whole time, decreased right knee flexion, increased Linda angle on the right, increased valgus on the right, increased size of right leg compared to left and pt c/o right knee pain and left hip pain. She takes one rest break with gait. LTG Duration 8 weeks 1 Impairment B LE weakness [facility] Goal (LTG) Pt will present with B hip flexion and abduction and knee flexion and extension to at least 4+/5 to improve functional strength. 09/05/24: B hip flexion and abduction 4+/5; right knee extension 4+/5; right knee flexion 3+/5; left knee flexion and extension 4+/5 LTG Duration 8 weeks Assessment Summary Assessment Continue education on compliance with HEP outside of PT for carryover ROM and strength good results during PT with verbalize understanding. Improved decreased stiffness and improved ROM for exercises post manual. No adverse affects during HEP, occasional cues for proper form. Good response to continued self ankle mobiliyt foot on step for AAROM knee and ankle. Improved balance progression added tandem stance head turns in corner and finger glide on wall for community gait. Improves knee mechanics bend and SLS time during hurdles with reps contact rail PRN. Physical Therapy Plan Frequency and Duration Frequency of Treatment 2x/Week Duration of treatment (weeks) 8 Plan of Care Start Date 08/08/24 Plan of Care End Date 10/09/24 Therapeutic Interventions Therapeutic Interventions Balance Training,Canalithic Repositioning,Coordination Training,Gait Training,Home Exercise Program,Joint Mobilizations,Manual Therapy, Neuromuscular Re-education, Patient/Caregiver Education, Self-Care/Home Management,Soft Tissue Mobilization,Taping, Therapeutic Activities, Therapeutic Exercises Modalities Cold Pack/Ice Massage,Electric Stimulation,Hot Packs, Ultrasound Other Referrals/Consults Referrals/Consults Recommended Recommend orthopedic consult Next Visit Focus/Plan Next Note Type Treatment Note Next Visit Plan 2 more visits, finalize HEP. REview added tandem, SLS and tandem walking. Continue gait mechanics and caution strengthening may be too much for pt d/t knee issues more functional ROM, ongoing manual work and d/c 09/25, consider KT for knee when she walks/ hikes
--- NOTE | 2024-09-22 09:47 | PT.OTN ---
Current Diagnoses Pain in right knee (09/22/24) Physical Therapy Treatment Note PT-OP-A Visit Information Start: 08/06/24 08:31 Freq: Status: Active Protocol: Document 09/22/24 09:06 SP (Rec: 09/22/24 09:49 SP [id number]) Out-Patient Physical Therapy Visit Information Visit Information Visit Type Treatment Note Visit Note 16 visits through 10/04/24 Visit Start Time 09:06 Visit Stop Time 09:47 Visit Number 12 Number of PAY PER CLICK STRATEGIST Visits 3 Evaluation Information Evaluation Date 08/08/24 PT-OP-B Current Condition Start: 08/06/24 08:31 Freq: Status: Active Protocol: Document 08/08/24 07:24 MB (Rec: 08/08/24 07:52 MB [id number]) Current Condition History of Current Condition Onset Date A couple of years Current Complaints Pain and buckling right knee History of Current Condition Pt reports ski injury 30 years ago where she shattered her distal RLE and she had ORIF and then hardware removal later. Pt was living on [address] for 25 years and has been putting off some health care self-care. She moved to [place] in February . She did some alternative treatments. Walking, hiking, stair climbing are all challenging. She swims everyday. Even shopping is troublesome. She does not have stairs at the house except one step to enter and she lives alone. Prior Treatments and Tests Right knee x-ray 04/10/24: IMPRESSION: Art-Stieda lesion. No acute fracture. Small right knee joint effusion. If symptoms persist with conservative management, consider cross-sectional imaging such as CT or MRI. Treatment Goals Patient/Caregiver Goals To walk without pain PT-OP-C Subjective Start: 08/06/24 08:31 Freq: Status: Active Protocol: Document 09/22/24 09:06 SP (Rec: 09/22/24 09:49 SP [id number]) OP-PT Subjective Patient Comments Patient Comments Pt reports after last tx her R knee hurt and buckled when out in community somewhere. She just came from the pool deep water class and felt good . She arrives stiff R knee walking to gym. She stated will call today to see about referral to orthopedic to check what's going on in side of her R knee. PT-OP-G Mobility & Gait Start: 08/06/24 08:31 Freq: Status: Active Protocol: Document 08/08/24 07:24 MB (Rec: 08/08/24 07:52 MB [id number]) OP Gait Assessment Comments Gait Comments Pt presents with antalgic gait , favoring right leg and she has decreased right knee flexion and increased Linda angle on the right with gait PT-OP-J Posture/Palpation/Skin Start: 08/06/24 08:31 Freq: Status: Active Protocol: Document 08/08/24 07:24 MB (Rec: 08/08/24 07:52 MB [id number]) Posture Evaluation Comments Posture Comments Standing posture with barefeet : decreased weight bearing right leg, increased knee valgus right knee, increased Linda angle on the right and WB medially on the right foot, forward shoulders and left shoulder is higher than the right, increased convexity right thoracic spine, mild left convexity lumbar spine, left iliac crest higher than the right. PT-OP-K Range of Motion Start: 08/06/24 08:31 Freq: Status: Active Protocol: Document 08/08/24 07:24 MB (Rec: 08/08/24 13:19 MB [id number]) Knee Goniometric Range of Motion Knee Left Knee ROM WFL No Patient Position Supine Comments 3-110 deg Right Knee ROM WFL No Patient Position Supine Comments 3-120 deg PT-OP-M Strength Start: 08/06/24 08:31 Freq: Status: Active Protocol: Document 08/08/24 07:24 MB (Rec: 08/08/24 13:19 MB [id number]) Hip Strength Hip Manual Muscle Testing Left Flexion (L2) 4+ Good+ Abduction 4+ Good+ Right Flexion (L2) 4 Good Abduction 4 Good Knee Strength Knee Manual Muscle Testing Left Flexion (S2) 4 Good Extension (L3) 4 Good Right Flexion (S2) 4+ Good+ Extension (L3) 4+ Good+ Ankle/Foot Strength Ankle and Foot Manual Muscle Testing Bilateral Dorsiflexion (L4) 5 Normal Toe Strength Toe Manual Muscle Testing Left Great Toe Extension 5 Normal Right Great Toe Extension 5 Normal PT-OP-Q Treatments Start: 08/06/24 08:31 Freq: Status: Active Protocol: Document 09/22/24 09:06 SP (Rec: 09/22/24 09:49 SP [id number]) Gym Equipment Cable Column (Body Solid) HS curl Resistance 2.5> 3 plates Reps/Time x15 reps- pnfree reported Therapeutic Exercises Supine Exercises Hook lying clam Supine Exercise Name reviewed Side bilateral Resistance TB #2 teal at upper tibia Reps/Minutes 20 reps alternating Comments cues for pelvic tilt, abd drawing in, level pelvis, slower pacing Hip rotator stretch Supine Exercise Name Reviewed from HEP Side bilateral Equipment Used Towel behind leg Reps/Minutes 30 sec hold each leg Comments cued breath- good hip stretch- ed good for walking recovery Regan stretch Supine Exercise Name Reviewed from HEP today Side bilateral Reps/Minutes 30 sec hold B Comments cued breath Sitting Exercises HS curl Sitting Exercise Name trialed inPT> added to HEP Side right Resistance Tb #2 teal achored front Reps/Minutes 10 reps each LE Standing Exercises squat forklift picker items Standing Exercise Name unable knee bend without pain- DC ankle and knee mobility at step Standing Exercise Name ROM in knee and ankle, agreed to HO Side right Resistance AAROM Equipment Used step vs chair, contact rail/ back of chair Reps/Minutes x10 Comments improved R knee mobility HS curls Standing Exercise Name reviewed today Side bilateral Resistance AROM Equipment Used rail support Reps/Minutes 10 repeat each side x2 sets Comments good painfree range calf raises Standing Exercise Name Toe raise, heel raise: reviewed Side bilateral Resistance AROM Equipment Used rail support Reps/Minutes x10 Comments cued not wt shift buttocks back, slight unlock/soft knee pos. Manual Therapy Treatment Consent Patient gave verbal consent for manual Yes treatment Other Other Manual Treatments Pt supine: STM and rolling pin to right vastus lateralis, adductors, medial hamstrings, Peroneals. Tib femoral A<>P, Tibfib PA. Neuro Re-Education Treatment Balance Activities tandem walking Details verbal reviewed today Comments is performing at home and in pool corner balance Details Tandem, SLS- reviewed Surface floor Comments Tandem- 30 SH- Improved self corrections soft knee stance for HS and quad cocontraction engagement. SLS- LLE 2 sec, RLE 8 sec PT-OP-T Assessment and Plan Start: 08/06/24 08:31 Freq: Status: Active Protocol: Document 09/22/24 09:06 SP (Rec: 09/22/24 09:49 SP [id number]) Physical Therapy Assessment Goals 3 Impairment Lack of HEP Assisted Goal (LTG) Pt will perform progressive HEP with I including pelvic realignment, flexibility, gentle strengthening and balance exercises to improve pain and function. 09/05/24: Pt is performing pelvic realignment, core, and flexibility exercises. 09/07/24: added standing heel/ toe raises and hamstring curl, pnfree. LTG Duration 8 weeks progression 09/07/24 2 Impairment Trouble walking Nurse Specialist Goal (LTG) Pt will gait train at least 1500 feet in 6 minutes with or without AD to improve community ambulation. 09/05/24: Pt gait trains 907 feet in 6 minutes with antalgic gait the whole time, decreased right knee flexion, increased Linda angle on the right, increased valgus on the right, increased size of right leg compared to left and pt c/o right knee pain and left hip pain. She takes one rest break with gait. LTG Duration 8 weeks 1 Impairment B LE weakness Nurse Specialist Goal (LTG) Pt will present with B hip flexion and abduction and knee flexion and extension to at least 4+/5 to improve functional strength. 09/05/24: B hip flexion and abduction 4+/5; right knee extension 4+/5; right knee flexion 3+/5; left knee flexion and extension 4+/5 LTG Duration 8 weeks Assessment Summary Assessment Beginning of tx manual for R knee mobility with good result response. Continued flexibility and AROM functional mobility with good response. Added seated resisted HS curl for strengthening stance time gait and balance support with no adverse affects. Still progressing balance activities tandem, slow progression SLS with no pain reported. Physical Therapy Plan Frequency and Duration Frequency of Treatment 2x/Week Duration of treatment (weeks) 8 Plan of Care Start Date 08/08/24 Plan of Care End Date 10/09/24 Therapeutic Interventions Therapeutic Interventions Balance Training,Canalithic Repositioning,Coordination Training,Gait Training,Home Exercise Program,Joint Mobilizations,Manual Therapy, Neuromuscular Re-education, Patient/Caregiver Education, Self-Care/Home Management,Soft Tissue Mobilization,Taping, Therapeutic Activities, Therapeutic Exercises Modalities Cold Pack/Ice Massage,Electric Stimulation,Hot Packs, Ultrasound Other Referrals/Consults Referrals/Consults Recommended Recommend orthopedic consult Next Visit Focus/Plan Next Note Type Discharge Summary Next Visit Plan HEP review: recheck HS TB, tandem, SLS and tandem walking . Continue gait mechanics and caution strengthening may be too much for pt d/t knee issues more functional ROM, ongoing manual work and d/c , consider KT for knee when she walks/hikes
--- NOTE | 2024-09-25 08:10 | PT.OTN ---
Current Diagnoses Pain in right knee (09/25/24) Physical Therapy Treatment Note PT-OP-A Visit Information Start: 08/06/24 08:31 Freq: Status: Active Protocol: Document 09/25/24 07:31 MB (Rec: 09/25/24 08:10 MB [id number]) Out-Patient Physical Therapy Visit Information Visit Information Visit Type Treatment Note Visit Start Time 07:31 Visit Stop Time 08:09 Visit Number 13 Number of ASSISTANT PROFESSOR SURGICAL TECHNOLOGY Visits 0 Evaluation Information Evaluation Date 08/08/24 PT-OP-B Current Condition Start: 08/06/24 08:31 Freq: Status: Active Protocol: Document 08/08/24 07:24 MB (Rec: 08/08/24 07:52 MB [id number]) Current Condition History of Current Condition Onset Date A couple of years Current Complaints Pain and buckling right knee History of Current Condition Pt reports ski injury 30 years ago where she shattered her distal RLE and she had ORIF and then hardware removal later. Pt was living on [address] for 25 years and has been putting off some health care self-care. She moved to [place] in February . She did some alternative treatments. Walking, hiking, stair climbing are all challenging. She swims everyday. Even shopping is troublesome. She does not have stairs at the house except one step to enter and she lives alone. Prior Treatments and Tests Right knee x-ray 04/10/24: IMPRESSION: Art-Stieda lesion. No acute fracture. Small right knee joint effusion. If symptoms persist with conservative management, consider cross-sectional imaging such as CT or MRI. Treatment Goals Patient/Caregiver Goals To walk without pain PT-OP-C Subjective Start: 08/06/24 08:31 Freq: Status: Active Protocol: Document 09/25/24 07:31 MB (Rec: 09/25/24 08:10 MB [id number]) OP-PT Subjective Patient Comments Patient Comments Pt got sick over the holiday. Pt's knee is better since starting PT. She is walking better and getting up better. PT-OP-G Mobility & Gait Start: 08/06/24 08:31 Freq: Status: Active Protocol: Document 08/08/24 07:24 MB (Rec: 08/08/24 07:52 MB [id number]) OP Gait Assessment Comments Gait Comments Pt presents with antalgic gait , favoring right leg and she has decreased right knee flexion and increased Linda angle on the right with gait PT-OP-J Posture/Palpation/Skin Start: 08/06/24 08:31 Freq: Status: Active Protocol: Document 08/08/24 07:24 MB (Rec: 08/08/24 07:52 MB [id number]) Posture Evaluation Comments Posture Comments Standing posture with barefeet : decreased weight bearing right leg, increased knee valgus right knee, increased Linda angle on the right and WB medially on the right foot, forward shoulders and left shoulder is higher than the right, increased convexity right thoracic spine, mild left convexity lumbar spine, left iliac crest higher than the right. PT-OP-K Range of Motion Start: 08/06/24 08:31 Freq: Status: Active Protocol: Document 08/08/24 07:24 MB (Rec: 08/08/24 13:19 MB [id number]) Knee Goniometric Range of Motion Knee Left Knee ROM WFL No Patient Position Supine Comments 3-110 deg Right Knee ROM WFL No Patient Position Supine Comments 3-120 deg PT-OP-M Strength Start: 08/06/24 08:31 Freq: Status: Active Protocol: Document 08/08/24 07:24 MB (Rec: 08/08/24 13:19 MB [id number]) Hip Strength Hip Manual Muscle Testing Left Flexion (L2) 4+ Good+ Abduction 4+ Good+ Right Flexion (L2) 4 Good Abduction 4 Good Knee Strength Knee Manual Muscle Testing Left Flexion (S2) 4 Good Extension (L3) 4 Good Right Flexion (S2) 4+ Good+ Extension (L3) 4+ Good+ Ankle/Foot Strength Ankle and Foot Manual Muscle Testing Bilateral Dorsiflexion (L4) 5 Normal Toe Strength Toe Manual Muscle Testing Left Great Toe Extension 5 Normal Right Great Toe Extension 5 Normal PT-OP-Q Treatments Start: 08/06/24 08:31 Freq: Status: Active Protocol: Document 09/25/24 07:31 MB (Rec: 09/25/24 08:10 MB [id number]) Therapeutic Exercises Supine Exercises MMT today Comments See goals for findings Other Exercises HEP review Comments Performed today on d/c Gait Training Gait Activity 6MWT Comments Performed without AD today and with ongoing antagic gait as described below: pt gait trains 1032 feet in 6 minutes and pt denies pain trek pole Comments Trekking poles: B and then with left hand and pt is able to gait train faster and have longer stride with gait, no real change with KT per pt no AD Comments Pt con't with slow gait and she is working on right knee flexion and step-through and this is somewhat better compared to assessment. ER/ increased Linda angle on the right and some catching at medial knee. She also has changes in left knee with gait and has decreased knee flexion and heel strike. Manual Therapy Treatment Consent Patient gave verbal consent for manual Yes treatment Other Other Manual Treatments KT right knee for support: black tape and c strip under patella and medial and lateral I strips to support the joint PT-OP-T Assessment and Plan Start: 08/06/24 08:31 Freq: Status: Active Protocol: Document 09/25/24 07:31 MB (Rec: 09/25/24 08:10 MB [id number]) Physical Therapy Assessment Goals 3 Impairment Lack of HEP Child Development Instructor Goal (LTG) Pt will perform progressive HEP with I including pelvic realignment, flexibility, gentle strengthening and balance exercises to improve pain and function. 09/05/24: Pt is performing pelvic realignment, core, and flexibility exercises. 09/07/24: added standing heel/ toe raises and hamstring curl, pnfree. 09/25/24: Pt has not been doing exercises over the past two days d/t illness. She is doing some balance exercises in the pool. She is not doing land exercises as much. LTG Duration Partially met 2 Impairment Trouble walking Half-Way Goal (LTG) Pt will gait train at least 1500 feet in 6 minutes with or without AD to improve community ambulation. 09/05/24: Pt gait trains 907 feet in 6 minutes with antalgic gait the whole time, decreased right knee flexion, increased Linda angle on the right, increased valgus on the right, increased size of right leg compared to left and pt c/o right knee pain and left hip pain. She takes one rest break with gait. 09/25/24: Pt gait trains 1032 feet in 6 minutes with ongoing antalgic gait pattern LTG Duration 8 weeks 1 Impairment B LE weakness Half-Way Goal (LTG) Pt will present with B hip flexion and abduction and knee flexion and extension to at least 4+/5 to improve functional strength. 09/05/24: B hip flexion and abduction 4+/5; right knee extension 4+/5; right knee flexion 3+/5; left knee flexion and extension 4+/5 09/25/24: Pt supine: left hip flexion 4+/5 and left hip abduction 5/5; left knee flexion and extension 4+/5; right hip flexion 4+/5, left hip abduction 5/5; right knee flexion 4+/5, right knee extension 4+/5 and no pain with testing LTG Duration 8 weeks Assessment Summary Assessment Pt has progresses towards PT goals including 6MWT, strength and HEP. She is not performing land exercises often as she prefers the pool and she does con't with antalgic gait in setting of right knee changes. Recommend orthopedic surgeon consult. She is ready to d/c as she has maximized OPPT potential at this time. Physical Therapy Plan Other Referrals/Consults Referrals/Consults Recommended Recommend orthopedic consult
== END 2024-10-05 14:38 | disposition home or self-care (01) ==
LOC: PHYS 07:30
PROVIDERS: Family Provider Family Medicine; PCP Family Medicine; Referring Provider Family Medicine; Visit Provider Family Medicine
DX: M25.561 Pain in right knee (principal)
CPT/HCPCS: 97110; 97112; 97116; 97140; 97161; 97530

== ENCOUNTER → 2024-11-23 13:47 | Outpatient (CLI) | payer MEDICARE, SELFPAY ==
--- NOTE | 2024-11-23 13:47 | DI.MRI.S_ITS ---
PROCEDURE: MR ANKLE LT WO CON INDICATIONS: chronic ankle pain TECHNIQUE: Noncontrast sagittal T1 spin echo and T2 fast spin echo with fat saturation, axial proton density fast spin echo and T2 fast spin echo with fat saturation, coronal T1 spin echo and T2 fast spin echo with fat saturation through the ankle/hindfoot. COMPARISON: None. FINDINGS: Image quality: Excellent. Bones and joints: Significant soft tissue swelling around distal lower leg extending to midfoot and hindfoot. Moderate midfoot and hindfoot joint osteoarthritic changes are seen more notably involving talonavicular joint, calcaneocuboid joint and tibiotalar joint. 8 millimeter osteochondral injury involving lateral aspect of distal tibial plafond is seen with surrounding edema. 3 millimeter osteochondral injury involving medial weight-bearing portion of talar dome is also seen. No acute fracture or dislocation. Small tibiotalar joint effusion is seen, no loose bodies. Well-defined plantar and dorsal calcaneal enthesophytes are seen. Medial structures: Mildly thickened posterior tibialis tendon at the level of distal talus and talonavicular joint is seen. The flexor digitorum longus, and flexor hallucis longus tendons are intact. The posterior tibial neurovascular bundle appears normal within the tarsal tunnel, without extrinsic mass effect. The deltoid ligament and spring ligament are mildly thickened. Lateral structures: The anterior talofibular ligament is thickened with intrasubstance T2 hyperintense signal. The calcaneofibular, and posterior talofibular ligaments appear intact. More superiorly, the anterior and posterior tibiofibular ligaments appear intact, as is the intermalleolar ligament. The tibiofibular syndesmosis is normal in width at 2 mm or less. The peroneus longus and brevis tendons are mildly thickened at the level of lateral malleolus tip extending to the level of cuboid. No gross signal abnormality is seen within the sinus tarsi. Anterior structures: The tibialis anterior, extensor hallucis longus, and extensor digitorum longus tendons appear intact. The dorsal talonavicular ligament appears intact. Posterior and plantar structures: Mildly thickened Achilles tendon is seen without Achilles tendon rupture. Medial and lateral bands of the plantar fascia are of normal thickness. No abductor digiti quinti muscle atrophy to suggest Rust neuropathy. IMPRESSION: 1. Moderate midfoot and hindfoot joint osteoarthritis. No fracture or dislocation. Osteochondral injuries involving distal tibial plafond and medial weight-bearing portion of talar dome as described above. Small joint effusion, no loose bodies. 2. Diffuse soft tissue swelling and edema along distal lower leg extending to midfoot and hindfoot. No drainable fluid collection. 3. Well-defined plantar and dorsal calcaneal enthesophytes with mildly thickened Achilles tendon extending to its posterior calcaneal insertion suggestive of tendinosis.. No Achilles tendon rupture. 4. Mild tendinosis involving posterior tibialis tendon at the level of distal talus and talonavicular joint. Mild tendinosis also seen involving peroneus brevis and longus tendons at the level of lateral malleolus tip extending to the level of cuboid. 5. Low-grade medial ankle ligament sprain. Low to moderate grade intrasubstance partial-thickness tear involving ATFL. No full-thickness ankle ligament rupture. Dictated by: Anthony Barahona M.D. on 11/23/2024 at 20:23 Approved by: Anthony Barahona M.D. on 11/23/2024 at 20:39
== END ==
PROVIDERS: Family Provider Family Medicine; PCP Family Medicine; Referring Provider Orthopaedic Surgery Foot and Ankle Surgery; Visit Provider Orthopaedic Surgery Foot and Ankle Surgery
DX: M76.822 Posterior tibial tendinitis, left leg (principal); S93.492A Sprain of other ligament of left ankle, initial encounter; M19.072 Primary osteoarthritis, left ankle and foot; M25.472 Effusion, left ankle; M79.89 Other specified soft tissue disorders; M77.32 Calcaneal spur, left foot
CPT/HCPCS: 73721

== ENCOUNTER → 2025-02-12 07:09 | Outpatient (CLI) | payer MEDICARE, SELFPAY ==
[2025-02-12 07:54] LABS: Add Manual Diff / Slide Review NO; Basophils Absolute Auto 100 /uL (0-100); Basophils Percent Auto 0.8 % (0-2); Eosinophils Absolute Auto 300 /uL (0-450); Eosinophils Percent Auto 3.9 % (2-4); Hematocrit 38.9 % (36-46); Hemoglobin 13.3 g/dL (12.0-16.0); Lymphocytes Absolute Auto 1800 /uL (1100-4500); Lymphocytes Percent Auto 24.8 % (25-40); Mean Corpuscular HGB Conc 34.3 % (30-36); Mean Corpuscular Hemoglobin 31.1 PG (26-34); Mean Corpuscular Volume 90.5 fL (80-100); Monocytes Absolute Auto 800 /uL (0-900); Monocytes Percent Auto 10.6 % (3-14); Neutrophils Absolute Auto 4300 /uL (1500-7000); Neutrophils Percent Auto 59.9 % (50-75); Platelet Count 182 X10^3/uL (150-400); Red Cell Distribution Width 12.7 % (11.6-14.8); White Blood Cell Count 7.2 X10^3/uL (4.5-11.0)
[2025-02-12 08:27] LABS: Alanine Aminotransferase 21 IU/L (<35); Albumin 4.1 g/dL (3.5-5.0); Albumin Globulin Ratio 1.7 (1.0-2.8); Alkaline Phosphatase 80 U/L (38-126); Aspartate Aminotransferase 32 IU/L (14-36); BUN Creatinine Ratio 26.6 (6-22); Bilirubin Total 0.7 mg/dL (0.2-1.3); Blood Urea Nitrogen 17 mg/dL (7-17); Calcium 9.7 mg/dL (8.4-10.2); Carbon Dioxide 27 mmol/L (22-32); Chloride 104 mmol/L (98-107); Cholesterol 213 mg/dL (140-199); Estimated Glomerular Filt Rate > 60 mL/min (>60); Globulin 2.4 g/dL (1.7-4.1); Glucose 101 mg/dL (70-99); HDL Cholesterol 56 mg/dL (40-60); HEMOLYSIS < 15 (0-50); LDL Cholesterol Calculated 121 mg/dL (<100); Potassium 4.3 mmol/L (3.4-5.1); Sodium 138 mmol/L (137-145); Total Protein 6.5 g/dL (6.3-8.2); Triglycerides 181 mg/dL (35-150)
[2025-02-12 09:19] LABS: Free T4, Direct Thyroxine 0.78 ng/dL (0.78-2.19)
== END ==
PROVIDERS: Family Provider Family Medicine; PCP Family Medicine; Referring Provider Family Medicine; Visit Provider Family Medicine
DX: E78.2 Mixed hyperlipidemia (principal); I10 Essential (primary) hypertension; R53.83 Other fatigue
CPT/HCPCS: 36415; 80053; 80061; 84439; 84443; 85025

== ENCOUNTER → 2025-02-15 06:53 | Outpatient (CLI) | payer MEDICARE, SELFPAY ==
--- NOTE | 2025-02-15 06:54 | DI.ECHO.S_ITS ---
[facility]+ [facility] : : [address] : : [place] : : [id number] : : Phone: [phone] Echocardiogram Report + + :Name: COSMO NG Study Date: 02/15/2025 Height: 67 in : :[facility] ReadingLocation: Weight: 200 lb : : Gender: Female BSA: 2.0 m2 : :: 1950 Age: 75 yrs BP: 163/80 mmHg: :Reason For Study: CHEST PAIN : :Ordering Physician: JIMMIE, : :SHAUN Ramesh Performed By: Jed Castillo : :Referring: SHAUN SAMUEL : + + Interpretation Summary 1) Normal left ventricular thickness, size, wall motion, and systolic function (EF 55-60%). 2) Normal right ventricular size and function. 3) No significant valvular abnormalities. 4) No prior Echo available for comparison. Procedure: A two-dimensional transthoracic echocardiogram with color flow and Doppler was performed. The study quality was technically adequate. There is no prior echocardiogram noted for this patient. The patient was in normal sinus rhythm during the exam. Left Ventricle: The left ventricle is normal in size. There is normal left ventricular wall thickness. There is no ventricular septal defect visualized. The ejection fraction is estimated to be 55-60%. There are no focal wall motion abnormalities. Diastolic parameters suggest a relaxation abnormality of the left ventricle, consistent with probable normal filling pressures. Right Ventricle: The right ventricle is normal in size and function. Atria: The left atrial size is normal. Right atrial size is normal. There is no Doppler evidence for an interatrial shunt. Mitral Valve: The mitral valve leaflets appear mildly thickened, but open well. There is trace mitral regurgitation. Aortic Valve: The aortic valve is trileaflet. The aortic valve opens well. There is no aortic valve stenosis. No aortic regurgitation is present. Tricuspid Valve: The tricuspid valve is normal in structure and function. There is trace tricuspid regurgitation. The right ventricular systolic pressure is estimated to be at least 33 mmHg based on an estimated right atrial pressure of 3 mm Hg. Pulmonic Valve: The pulmonic valve is not well visualized. There is no pulmonic valvular regurgitation. Great Vessels: The aortic root is normal size. The ascending aorta could not be visualized. The pulmonary artery is not well visualized, but is probably normal size. The IVC is of normal diameter and collapses greater than 50% with a sniff. This suggests a low right atrial pressure of 3 mm Hg. Pericardium/ Pleura There is no pericardial effusion. There is no pleural effusion. MMode/2D Measurements & Calculations LVIDd: 5.3 cm LVOT diam: 1.9 cm LVIDs: 3.6 cm Ao root diam: 3.0 cm FS: 30.8 % EPSS: 0.68 cm IVSd: 1.0 cm LVPWd: 0.96 cm LV lake. diameter/BSA (cm/m^2): 2.6 LV sys. diameter/BSA (cm/m^2): 1.8 LA A2 area: 18.1 cm2 RA long axis: 4.0 cm LA A4 area: 21.9 cm2 RA area: 12.2 cm2 LA length (vol): 5.8 cm RA vol: 31.5 ml LA vol: 58.4 ml RA : 15.6 ml/m2 LA vol index: 28.9 ml/m2 IVC diam: 1.8 cm RVD1 (basal): 3.2 cm RVD2 (mid): 2.9 cm TAPSE: 3.0 cm Doppler Measurements & Calculations Ao V2 max: 144.9 cm/sec LVOT Max Silver: 122.3 cm/sec Ao V2 mean: 96.1 cm/sec LV V1 max P.0 mmHg Ao max P.4 mmHg LV V1 VTI: 30.7 cm Ao mean P.2 mmHg PAYAM(I,D): 2.5 cm2 Ao V2 VTI: 34.4 cm PAYAM(V,D): 2.3 cm2 sev ratio: 0.89 PAYAM indexed to BSA (cm^2/m^2): 1.2 MV E max silver: 84.0 cm/sec TR max silver: 274.8 cm/sec MV A max silver: 92.3 cm/sec TR max P.2 mmHg MV E/A: 0.91 PA V2 max: 103.3 cm/sec Med Peak E' Silver: 7.3 cm/sec PA V2 mean: 75.1 cm/sec E/E' med: 11.6 PA mean P.4 mmHg Lat Peak E' Silver: 7.6 cm/sec PA pr(Accel): 31.0 mmHg E/E' lat: 11.0 E/e' average: 11.3 MV dec time: 0.25 sec SV(LVOT): 85.1 ml Reading Physician:01:12 PM
--- NOTE | 2025-02-15 17:30 | DI.NM.S_ITS ---
DATE OF SERVICE: 02/15/2025 EXERCISE STRESS TEST INDICATIONS: Chest pain. CARDIAC STRESS: The patient walked on Rambo protocol for 3 minutes and 8 seconds, achieved maximum heart rate of 119 which was 82% target heart rate. Resting blood pressure 142/84 and peak blood pressure 166/82. K[facility] positive 37%, 3.3 METS of workload. Baseline rhythm sinus. During stress, no convincing ischemic changes seen. No significant arrhythmias. No chest pain. Moderate shortness of breath. CONCLUSION: Exercise stress test, which is mildly submaximal did not show any obvious inducible ischemia. Significantly diminished exercise tolerance. K[facility] positive 37%. No significant arrhythmias. Normal hemodynamic response. The patient has shortness of breath without any chest pain. Correlate clinically and consider repeating exercise stress test for imaging modality for further CAD diagnosis and risk stratification. May consider exercise stress echo to assess diastolic dysfunction as well. Rachel Lorri - JASON/marcia/DENISE doc#: [id number]/job#: [id number] dd: 02/15/2025 17:16:00 dt: 02/15/2025 17:20:00 DICTATING /COPIES TO: Chanda Hodges MD COPIES MNE: DUSTIN;
== END ==
PROVIDERS: Family Provider Family Medicine; PCP Family Medicine; Referring Provider Family Medicine; Visit Provider Family Medicine
DX: R06.02 Shortness of breath (principal); R07.9 Chest pain, unspecified
CPT/HCPCS: 93017; 93306

== ENCOUNTER → 2025-04-18 07:55 | Outpatient (CLI) | payer MEDICARE, SELFPAY ==
[2025-04-18 10:21] LABS: TSH w/ Reflex to FT4 5.24 uIU/mL (0.47-4.68)
[2025-04-18 10:47] LABS: Free T4, Direct Thyroxine 1.20 ng/dL (0.78-2.19)
== END ==
PROVIDERS: PCP Family Medicine; Referring Provider Family Medicine; Visit Provider Family Medicine
DX: E03.9 Hypothyroidism, unspecified (principal); R53.83 Other fatigue
CPT/HCPCS: 36415; 84439; 84443

== ENCOUNTER → 2025-06-07 07:12 | Outpatient (CLI) | payer MEDICARE, SELFPAY ==
[2025-06-07 10:10] LABS: TSH w/ Reflex to FT4 4.39 uIU/mL (0.47-4.68)
== END ==
PROVIDERS: PCP Family Medicine; Referring Provider Family Medicine; Visit Provider Family Medicine
DX: E03.9 Hypothyroidism, unspecified (principal)
CPT/HCPCS: 36415; 84443